=== PATIENT | male | born 1975 | race Caucasian/White ===

== ENCOUNTER 2025-07-14 00:02 | Emergency (ER) | payer OTHER, SELFPAY ==
[2025-07-14] VITALS (24 sets, daily range): BP systolic 129–146; BP diastolic 93–119; PULSE 85–86; RESP 16; TEMP 36.6; O2SAT 92–100
--- NOTE | ~2025-07-14 | XR_ITS ---
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 Lungs clear. No acute bony abnormality. IMPRESSION: 1. No acute cardiopulmonary findings. Reviewed, dictated and finalized at location R.
--- NOTE | 2025-07-14 00:24 | PC.NURSE ---
naz castro at bedside for assessment.
--- NOTE | 2025-07-14 00:31 | ECG_ITS ---
Test Date: 2025-07-14 00:45:29 Measurements Intervals [place] Rate: 83 P: 29 FL: 139 QRS: 7 QRSD: 86 T: 3 QT: 342 QTc: 402 Interpretive Statements SINUS RHYTHM DELAYED PRECORDIAL R/S TRANSITION LOW QRS VOLTAGE IN PRECORDIAL LEADS BORDERLINE ST-T WAVE ABNORMALITY- ANT/INF LEADS BASELINE ARTIFACT- I, III, AVR, AVL BORDERLINE ECG No previous ECG available for comparison Electronically Signed On 07-14-2025 05:07:49 CDT by Idris Christianson D.O.
--- NOTE | 2025-07-14 00:33 | ED.CHESTPAIN ---
HPI - Chest Pain General Chief Complaint: Anxiety Stated Complaint: anxious requesting resources Time Seen by Provider: 07/14/25 00:03 History of Present Illness HPI narrative: Patient is a 49-year-old male who presents to the ER with chest tightness, palpitations, hot/cold sweats, and projectile vomiting. He reports the same symptoms were present approximately 1 week ago and he went to [facility] in [place] for evaluation. Patient reports he was admitted for a ?fast heart rate. He also endorses shortness of breath. Patient reports he has had a lot of anxiety and stress in his life lately, so he does not know if this is anxiety related but he feels something is wrong with his heart. He endorses a history of alcoholism, CHF, cirrhosis, high blood pressure, and hyperlipidemia. Patient reports he has not drink alcohol in 6 months. He denies any recent fevers, acute back pain, abdominal pain or urinary symptoms. Related Data Home Medications ?Medication ?Instructions ?Recorded ?Confirmed ?Last Taken ?Type amiloride 5 mg tablet 5 mg PO DAILY 07/14/25 07/14/25 Unknown History aspirin 81 mg tablet,delayed mg 07/14/25 Unknown History release ergocalciferol (vitamin D2) 1,250 1,250 mcg PO WEEKLY 07/14/25 07/14/25 Unknown History mcg (50,000 unit) capsule (Vitamin D2) ezetimibe 10 mg tablet mg 07/14/25 Unknown History magnesium 250 mg tablet 250 mg PO DAILY 07/14/25 07/14/25 Unknown History pantoprazole 40 mg tablet,delayed 40 mg PO HS 07/14/25 07/14/25 Unknown History release (Protonix) Allergies Allergy/AdvReac Type Severity Reaction Status Date / Time cortisone Allergy Mild thrush Verified 07/14/25 00:04 Clgdddm-[id number]-WrP Reductase Allergy Mild thrush Verified 07/14/25 00:04 Inhibitor Review of Systems Review of Systems: All systems reviewed & are unremarkable except as noted in HPI and below PMFSH Social History Social History Substance use type: does not use Exam Narrative: GENERAL: Well appearing, well-nourished, non-toxic, in no acute distress. HEAD: Normocephalic, atraumatic. NECK: Supple. No adenopathy, no masses. RESPIRATORY: Airway patent, respirations nonlabored. Clear to auscultation bilaterally, no rales, rhonchi, wheezing. CARDIOVASCULAR: Regular rate and rhythm without murmurs, rubs, or gallops. Peripheral pulses 2+ and equal bilaterally. ABDOMINAL: Soft, nontender, nondistended, no hepatosplenomegaly. Normoactive BS. MUSCULOSKELETAL: Moves all extremities. Strength/ROM intact without gross deformities. SKIN: Warm, dry, normal color. No rashes. NEURO: A&O X3. Speech clear. Cranial nerves II-XII intact. No ataxic movements. PSYCHIATRIC: Appropriate mood and affect. Normal interaction. Anxious-appearing Course Vital Signs Vital signs: Vital Signs Temperature 36.6 C 07/14/25 00:01 Pulse Rate 85 07/14/25 00:01 Respiratory Rate 16 07/14/25 00:01 Blood Pressure 137/100 H 07/14/25 00:01 Pulse Oximetry 100 07/14/25 00:01 Oxygen Delivery Room Air 07/14/25 00:01 Temperature 36.6 C 07/14/25 00:01 Pulse Rate 85 07/14/25 00:01 Respiratory Rate 16 07/14/25 00:01 Blood Pressure 137/100 H 07/14/25 00:01 Pulse Oximetry 100 07/14/25 00:01 Oxygen Delivery Room Air 07/14/25 00:01 MDM - Chest Pain MDM Narrative Medical decision making narrative: Patient is a 49-year-old male who presents to the ER with chest tightness, palpitations, hot/cold sweats, and projectile vomiting. He reports the same symptoms were present approximately 1 week ago and he went to [facility] for evaluation. Patient reports he was admitted for a ?fast heart rate. He also endorses shortness of breath. Patient reports he has had a lot of anxiety and stress in his life lately, so he does not know if this is anxiety-related but he feels something is wrong with his heart. He endorses a history of alcoholism, CHF, cirrhosis, high blood pressure, and hyperlipidemia. Patient reports he has not drink alcohol in 6 months. He denies any recent fevers, acute back pain, abdominal pain or urinary symptoms. Pt reports he has an appointment scheduled with a rn outpatient surgery in five days. Labs Ordered: CBC, CMP, lipase, proBNP, UA, UDS, TSH, PTT, INR, D-dimer, troponin Imaging Ordered: Chest x-ray Medications Ordered: Xanax p.o. Results: Patient's CBC indicates a platelet count of 124 (he reports it was recently as low as 48). His coags and D-dimer were all within normal limits. Patient's CMP indicates a sodium of 135, carbon dioxide of 19, BUN of 21, total bilirubin of 1.8, and total protein of 8.8. His proBNP was negative. Patient's troponin level was negative. His lipase negative. Patient's TSH was within normal limits. Diagnosis: Atypical chest pain, shortness of breath, anxiety attack Patient Education/Shared MDM: Results of lab work and imaging shared with patient. At time of reexamination he endorses right flank pain that radiates to his abdomen. Patient was reassured that his urine indicates no abnormalities. Extensive discussion between patient and [employer] regarding pt's need for mental health follow-up. He declines mental health evaluation at this time. Patient is requesting resources for housing. He reports I guess I'll just need to get a ride down to [place] and hopefully they can treat me there. Patient strongly advised to maintain hydration status upon discharge and follow-up with his psychiatrist and PCP as soon as possible. He was also advised to follow-up with his rn outpatient surgery in five days, as planned. Pt was offered a prescription for hydroxyzine but reports ?that medicine does not work. He will be provided with counseling and housing resources. Strict return precautions provided. Patient verbalized understanding and is in agreement with plan. Vital signs stable at time of discharge. All questions answered. Differential Diagnosis Differential diagnosis: Likely atypical chest pain, st elevation myocardial infarction, costochondritis, chest pain and other (Anxiety) Lab Data Attestation: I reviewed the patient's lab results. 07/14/25 00:53 07/14/25 00:53 Labs: Lab Results 07/14/25 07/14/25 Range/Units 00:53 00:53 WBC 5.5 (4.5-10.0) K/mm3 RBC 4.82 (4.6-6.20) M/mm3 Hgb 15.7 (14.0-18.0) g/dL Hct 44.6 (42.0-52.0) % MCV 92.5 (80-100) fl MCH 32.6 (26-34) pg MCHC 35.2 (32-36) g/dl RDW 13.8 (11.5-14.5) % Plt Count 124 L (150-375) k/mm3 MPV 11.8 H (7.4-10.4) fl Immature Gran % (Auto) 0.4 (0-0.5) % Neut % (Auto) 65.5 (45.5-73.1) % Lymph % (Auto) 22.0 (18.3-44.2) % Stanley % (Auto) 10.5 H (2.6-8.5) % Eos % (Auto) 1.1 (0-4.4) % Baso % (Auto) 0.5 (0.2-1.2) % Lymph # (Auto) 1.21 (0.9-3.2) K/mm3 Stanley # (Auto) 0.6 (0.1-0.6) K/mm3 Eos # (Auto) 0.1 (0-0.3) K/mm3 Baso # (Auto) 0.0 (0.0-0.1) K/mm3 Abs Immat Gran (auto) 0.02 (0.00-0.031) K/mm3 Absolute Neuts (auto) 3.6 (1.3-6.7) K/mm3 Absolute Nucleated RBC 0.000 (0.0-0.012) K/mm3 Nucleated RBC % 0.0 (0.0-0.2) % % Immature Plt Fraction 8.7 (0.9-11.2) % PT 14.0 (11.1-14.7) Seconds INR 1.1 APTT 30.4 (22.3-36.8) Seconds D-Dimer 0.31 Cancelled (<0.48) ug/mL Sodium 135 L (137-145) mmol/L Potassium 4.3 (3.4-5.0) mmol/L Chloride 105 (98-107) mmol/L Carbon Dioxide 19 L (22-30) mmol/L Anion Gap 11 (4-12) mmol/L BUN 21 H (9-20) mg/dL Creatinine 0.92 (0.7-1.3) mg/dL Estim Creat Clear Calc 97 ml/min Estimated GFR > 60 (59 - ) Glucose 88 (65-110) mg/dL Calcium 9.4 (8.4-10.2) mg/dL Total Bilirubin 1.8 H (0.2-1.3) mg/dL AST 50 (17-59) U/L ALT 45 (6-50) U/L Alkaline Phosphatase 84 (38-126) U/L Troponin I < 0.012 (0.000-0.034) ng/mL NT-Pro-B Natriuret Pep < 20 (19.9-100) pg/mL Total Protein 8.8 H (6.3-8.2) g/dL Albumin 4.8 (3.5-5.1) g/dL Lipase 103 (23-300) U/L TSH (Reflex) 3.780 (0.465-4.68) uIU/mL Urine Color Yellow (Yellow) Urine Appearance Clear (Clear) Urine pH 5.5 (5.0-9.0) Ur Specific [place] 1.014 (1.001-1.035) Urine Protein Negative (Negative) mg/dL Urine Glucose (UA) Negative (Negative) mg/dL Urine Ketones Negative (Negative) mg/dL Ur Blood (Man) Negative (Negative) Urine Nitrate Negative (Negative) Urine Bilirubin Negative (Negative) Urine Urobilinogen 1.0 (<2.0) mg/dL Leukocyte Esterase Rfl Negative (Negative) LOTUS/UL Urine Opiates Screen Negative (Negative) Urine Methadone Screen Negative (Negative) Ur Barbiturates Screen Negative (Negative) Ur Phencyclidine Scrn Negative (Negative) Ur Amphetamine Screen Negative (Negative) U Benzodiazepines Scrn Negative (Negative) Urine Cocaine Screen Negative (Negative) U Cannabinoids Screen Negative (Negative) Imaging Data Attestation: I personally reviewed and interpreted this imaging study as follows: My impression: No acute abnormalities noted on patient's x-ray Discharge Plan Discharge Clinical Impression: Acute anxiety, Atypical chest pain, Shortness of breath Patient Disposition: Home Condition: Stable Instructions: Antibiotic Form, Noncardiac Chest Pain (ED), Anxiety (ED) Additional Instructions: Please return to the ER with any worsening symptoms. Follow-up with your primary care provider and psychiatrist as soon as possible. Keep your cardiology appointment as planned. Take all medications as prescribed, including regularly scheduled medications. Patient Language: Guamanian Prescriptions: No Action aspirin 81 mg tablet,delayed release (DR/EC) ezetimibe 10 mg tablet amiloride 5 mg tablet 5 mg PO DAILY ergocalciferol (vitamin D2) [Vitamin D2] 1,250 mcg (50,000 unit) capsule 1,250 mcg PO WEEKLY magnesium 250 mg tablet 250 mg PO DAILY pantoprazole [Protonix] 40 mg tablet,delayed release (DR/EC) 40 mg PO HS Follow-up/Referrals: Rip Cabrera MD [Non-Staff, Medical] Time of Disposition: 02:51
--- OUTSIDE RECORDS SUMMARY | 2025-07-14 00:40 | XMS_ITS | Clinical Summary ---
Author Organization [facility] Address [address] [place] [address] Care Team Providers Care Marble Worker Name Role Phone None, Provider MD Primary Care Provider Unavaila ble Allergies Active Allergy Reactions Criticality Noted Date Comments Statins Unknown 08/08/2021 Medications ondansetron 4 MG disintegrating tablet Take 1 tablet (4 mg total) by mouth every 8 (eight) hours as needed for Nausea. 20 tablet 1 Active guaiFENesin ER 600 MG 12 hr tablet Take 2 tablets (1,200 mg total) by mouth 2 (two) times daily. 28 tablet 1 Active Social History Tobacco Use Types Packs/Day Years Used Date Smoking Tobacco: Never Smokeless Tobacco: Never Sex and Gender Information Value Date Recorded Sex Assigned at Not on file Legal Sex Male 6:24 PM CDT Gender Identity Not on file Sexual Orientation Not on file Last Filed Vital Signs Vital Sign Reading Time Taken Comments Blood Pressure 172/102 08/08/2021 5:35 PM BASS SINGER Pulse 94 08/08/2021 5:35 PM BASS SINGER Temperature 36.7 C (98.1 F) 08/08/2021 5:35 PM BASS SINGER Respiratory Rate 18 08/08/2021 5:35 PM BASS SINGER Oxygen Saturation 98% 08/08/2021 5:35 PM BASS SINGER Inhaled Oxygen Concentration - - Weight 105 kg (231 lb 6.1 oz) 04/08/2016 9:56 AM CDT Height 167.6 cm (5' 6) 04/08/2016 9:56 AM CDT Body Mass Index 37.35 04/08/2016 9:56 AM CDT Plan of Treatment Health Maintenance Due Date Last Done Comments Colorectal Cancer Screening Colonoscopy (10 Years) 1974 Annual Physical 1977 Hepatitis C 1992 DTaP, Tdap and Td Vaccines ( 1 - Tdap) 1993 Hepatitis B Vaccines (1 of 3 - 19+ 3-dose series) 1993 Pneumococcal Vaccine: 50+ Ye ars (1 of 1 - PCV) 2024 Zoster Vaccines (1 of 2) 2024 COVID-19 Vaccine (2 - 2024-2 6 season) 2025 01/01/2021 Influenza Adult (#1) 2025 Hepatitis A Vaccines Aged Out No long er eligible based on patient's age to complete this topic Meningococcal B Vaccine Aged Out No l onger eligible based on patient's age to complete this topic Meningococcal Vaccine Aged Out No andrea emily eligible based on patient's age to complete this topic RSV Immunizations Under 20 Months Aged Out No longer eligible based on patient's age to complete this topic Insurance Care Teams Marble Worker Relationship Specialty Start Date End Date None, Provider, PCP - General 08/08/21
--- OUTSIDE RECORDS SUMMARY | 2025-07-14 00:41 | XMS_ITS | Clinical Summary ---
Author Organization [facility] Address [address] [place] [address] Care Team Providers Care Cargo Checker Name Role Phone No, Physician Primary Care Provider [phone] Allergies Active Allergy Reactions Criticality Noted Date Comments Cortisone Other (See comments) Low 11/24/2023 thrush Nsaids (Non-Steroidal Anti-Inflammatory Drug) Other (See comments) Low 10/01/2022 Contraindicated with esophageal varices. [id number] Reductase Inhibitors Unknown 08/08/2021 Medications cyanocobalamin (Vitamin B-12) 500 mcg tabletIndicatio ns:Prevention of Vitamin B12 Deficiency Take 1 tablet (500 mcg total) by mouth daily Active multivitamin with folic acid 400 mcg tablet Take 1 tablet by mouth daily 30 tablet 4 Active thiamine (VITAMIN B1) 100 mg tabletIndicatio ns:Thiamine Deficiency Take 1 tablet (100 mg total) by mouth daily 30 tablet 4 Active furosemide (LASIX) 20 mg tablet TAKE 1 TABLET BY MOUTH EVERY DAY 90 tablet [address] (PROTONIX) 40 mg EC tablet Take 1 tablet (40 mg total) by mouth daily 30 tablet 4 Active carvediloL (COREG) 6.25 mg tablet Take 1 tablet (6.25 mg total) by mouth 2 (two) times a day with meals Active acetaminophen (TYLENOL) 500 mg tablet Take 1 tablet (500 mg total) by mouth 4 (four) times a day as needed for pain Active AMILoride (MIDAMOR) 5 mg tablet Take 2 tablets (10 mg total) by mouth daily Active cholecalciferol (VITAMIN D-3) 2000 unit capsule Take 1 capsule (2,000 Units total) by mouth daily Active FLUoxetine (PROzac) 20 mg capsule Take 1 capsule (20 mg total) by mouth daily Active magnesium oxide (MAG-OX) 400 mg (241.3 mg elemental magnesium) tabletIndicatio ns:hypomagnesem ia Take 1 tablet (400 mg total) by mouth daily Active potassium chloride ER 20 mEq CR tablet Take 2 tablets (40 mEq total) by mouth daily Active aspirin 81 mg enteric coated tabletIndicatio ns:myocardial infarction prevention Take 1 tablet (81 mg total) by mouth daily 30 tablet 5 08/08/20 Active ezetimibe (ZETIA) 10 mg tablet Take 1 tablet (10 mg total) by mouth daily 30 tablet 5 08/08/20 Active magnesium glycinate 100 mg tablet Take 300 mg by mouth daily 07/06/20 Discontinu ed(Alterna te therapy) multivit with min-folic acid 200 mcg tablet,chewable Take by mouth 07/06/20 Discontinu ed(Alterna te therapy) ascorbic acid (VITAMIN C) 500 mg tablet,chewable Take 1 tablet/chew tab (500 mg total) by mouth daily 07/06/20 Discontinu ed(Therapy completed) vitamin D3-folic acid 125 mcg (5,000 unit)-1 mg tablet Take by mouth daily 07/06/20 Discontinu ed(Alterna te therapy) ketorolac (ACULAR) 0.5 % ophthalmic solution 3 07/06/20 Discontinu ed(Therapy completed) folic acid (FOLVITE) 1 mg tablet TAKE 1 TABLET BY MOUTH EVERY DAY 90 tablet 3 07/06/20 Discontinu ed(Therapy completed) carvediloL (COREG) 6.25 mg tablet Take 1 tablet (6.25 mg total) by mouth 2 (two) times a day with meals Annual due after 11/29/23 180 tablet 4 07/06/20 Discontinu ed(Alterna te therapy) spironolactone (ALDACTONE) 50 mg tablet Take 1 tablet (50 mg total) by mouth daily 90 tablet 3 4 07/06/20 Discontinu ed(Therapy completed) ibuprofen (ADVIL,MOTRIN) 800 mg tablet Take 1 tablet (800 mg total) by mouth 3 (three) times a day as needed for pain 07/08/20 Discontinu ed(Stop Taking at Discharge) Active Problems Problem Noted Date Diagnosed Date Atypical chest pain 07/06/2025 Precordial pain 07/06/2025 Alcohol withdrawal syndrome without complication 11/24/2023 Situational mixed anxiety and depressive disorde r 03/12/2023 Assessment & Plan (03/12/2023 10:16 AM CDT): New diagnosis-referred to psychiatry and psychology, information provided on local providers, however recommended that he contact insurance for a list of providers covered under his plan. If suicidal ideation and/or thoughts of harming self or others, advised to go to ER and/or call [phone]. Bilateral foot pain 03/12/2023 Assessment & Plan (03/12/2023 10:14 AM CDT): Chronic, stable-referred to podiatry for further evaluation and management. Bilateral bunions 03/12/2023 Assessment & Plan (03/12/2023 10:14 AM CDT): Chronic, stable-referred to podiatry for further evaluation and management. Preoperative clearance 03/12/2023 Assessment & Plan (03/12/2023 10:15 AM CDT): Cleared for cataract surgery. Neuroendocrine tumor 12/09/2022 Assessment & Plan (12/09/2022 11:22 AM CDT): EGD August [address] Bah with large esophageal varices and portal hypertensive gastropathy as well as a few small mucosal nodules in the gastric body, pathology with well-differentiated low-grade neuroendocrine lesion arising within a background of complete intestinal metaplasia. -schedule EGD -The risks (risks of bleeding, infection, perforation requiring surgery, missed polyps/cancer, dental injury, aspiration pneumonia, anesthesia complications such as drug reaction and cardiopulmonary complications including rare chance of ), benefits, and alternatives of the planned procedure were explained to the patient who understands and consents to having procedure done. -refer to Oncology for further evaluation Gastric intestinal metaplasia 12/09/2022 Assessment & Plan (12/09/2022 11:23 AM CDT): Noted on pathology from EGD August 2022. Screening for colon cancer 12/09/2022 Assessment & Plan (12/09/2022 11:36 AM CDT): No prior colonoscopy. No family history of colon cancer. -discuss colonoscopy for screening as well as alternatives, patient deferred at this time -advised patient he would likely need colonoscopy once evaluated by liver transplant, he states he would consider it at that time Physical exam, annual 11/29/2022 Assessment & Plan (11/29/2022 3:02 PM MANAGER COUNCIL): Reviewed past and current medical history, surgical history, social history, family history, current medications, and allergies. A ROS and PE were performed. Medication and a PSA level were ordered. Discussed screening colonoscopy, PSA screening, and recommended immunizations. Patient will follow-up in 12 weeks for further evaluation and management or sooner if needed. Liver failure without hepatic coma, unspecified chronicity 10/27/2022 Assessment & Plan (11/29/2022 2:54 PM MANAGER COUNCIL): Chronicity unknown, with stable ammonia levels-encouraged to keep appointment with route aide scheduled for 12/09/2022. Assessment & Plan (10/31/2022 4:28 PM MANAGER COUNCIL): Chronic, with acute symptoms, improved upon discharge from hospital, still jaundiced with abdominal bloating-no changes have been made in medication. Advised to continue abstinence from alcohol. Encouraged to attempt to call Dr. Jenkins's office to see if earlier availability and/or [facility] Department of Hepatology. Recommended follow-up in office in 4 weeks for annual exam, sooner if needed. Instructed to go to ER if worsening jaundice, nausea, vomiting, abdominal pain, blood in vomitu, blood in stools or with wiping, black tarry stools, fever, chills, sweats, and/or weakness. Fatigue 10/25/2022 Assessment & Plan (03/12/2023 10:14 AM CDT): Chronic, stable-referred to sleep medicine for further evaluation and management. Assessment & Plan (11/29/2022 2:59 PM MANAGER COUNCIL): Chronic, worsening, with recent normal hemoglobin and hematocrit, elevated ferritin level, and normal TSH level-encouraged to break activities into smaller tasks and nap when feasible. Assessment & Plan (10/25/2022 10:05 PM MANAGER COUNCIL): Jaundice Recent diagnosis of esophageal varices and cirrhosis Symptoms more likely related to cirrhosis rather than acute viral illness, rapid covid and flu negative Notified pt's PCP Emely Gómez of his current symptoms He will go to ER if worsening symptoms today or tomorrow, and has appointment with Emely on Friday Prostate cancer screening 10/05/2022 Assessment & Plan (11/29/2022 2:53 PM MANAGER COUNCIL): Ordered PSA level. Assessment & Plan (10/05/2022 8:19 AM MANAGER COUNCIL): Ordered PSA level. Encounter for vitamin deficiency screening 10/05 Assessment & Plan (10/05/2022 8:27 AM MANAGER COUNCIL): Ordered vitamin-D level and magnesium level. Continued on vitamin B1, B12, folic acid, multivitamin, and magnesium. Abdominal distension 09/05/2022 Assessment & Plan (11/29/2022 3:01 PM MANAGER COUNCIL): Chronicity and stability unknown, status post 2 paracentesis-encouraged to keep appointment with route aide scheduled for 12/09/2022. Assessment & Plan (10/05/2022 8:33 AM MANAGER COUNCIL): Acute, resolved at time of visit, status post paracentesis with 5 L of ascitic fluid removed-encouraged continued abstinence from alcohol and fluid restriction of 1800 mL per day recommended on discharge. Transaminitis 09/05/2022 Assessment & Plan (11/29/2022 2:52 PM MANAGER COUNCIL): Chronicity and stability unknown, resolved at last check-referred to route aide, has upcoming appointment on 12/09/2022. Assessment & Plan (10/05/2022 8:19 AM MANAGER COUNCIL): Chronicity and stability unknown-ordered CMP. Hyponatremia 09/05/2022 Assessment & Plan (11/29/2022 2:54 PM MANAGER COUNCIL): Chronicity unknown, stable at last check-will continue to monitor periodically. Assessment & Plan (10/05/2022 8:22 AM MANAGER COUNCIL): Chronicity unknown, stable during hospitalization, still low upon discharge- ordered CMP. Hypokalemia 09/05/2022 Assessment & Plan (11/29/2022 2:55 PM MANAGER COUNCIL): Chronicity and stability unknown, normal at last check-will continue to monitor periodically. Assessment & Plan (10/05/2022 8:23 AM MANAGER COUNCIL): Chronicity unknown, improved during hospitalization/controlled upon discharge- ordered CMP. Hypomagnesemia 09/05/2022 Assessment & Plan (11/29/2022 2:55 PM MANAGER COUNCIL): Chronicity and stability unknown, normal at last check-ordered magnesium level. Assessment & Plan (10/05/2022 8:23 AM MANAGER COUNCIL): Chronicity unknown, improved during hospitalization/controlled upon discharge, now on supplement-encouraged to continue magnesium supplement daily. Ordered magnesium level. Class 1 obesity due to exces s calories with serious comorbidity and body mass index (BMI) of 30.0 to 30.9 in adult 09/05/2022 Assessment & Plan (11/29/2022 3:00 PM MANAGER COUNCIL): Chronicity and stability unknown-encouraged to make healthy choices, consuming a low-fat, low-cholesterol diet. Assessment & Plan (10/05/2022 8:21 AM MANAGER COUNCIL): Chronicity unknown, improved since hospital discharge, BMI previously 36.9, now 30.36-advised to cntinue fluid restriction of 1800 mL per day recommended on discharge and to follow a low-fat, low-cholesterol, low-sodium diet. 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 Patient was admitted to the hospital for abdominal distention status post paracentesis with 5 L removed in August of 2022. EGD [address] Bah as below.Labs from August 2022 with normal AFP, normal alpha 1 antitrypsin level, normal ceruloplasmin, elevated transferrin saturation of 58, ferritin of 1292, hepatitis panel nonreactive, positive NACHO, negative AMA, positive ASMA. Labs October 2022 with an IgG level of 2,477. Patient was readmitted to the hospital October 2022 for jaundice. Denies any alcohol use since August 2022. MELD score 25 based on labs from October 27 2022. -continue to avoid all alcohol -continue Lasix 40 mg p.o. daily and Aldactone 100 mg p.o. daily -refer to liver transplant Clinic Assessment & Plan (11/29/2022 3:00 PM MANAGER COUNCIL): Chronicity unknown, with stable ammonia levels-encouraged to keep appointment with route aide scheduled for 12/09/2022. Assessment & Plan (10/05/2022 8:30 AM MANAGER COUNCIL): New diagnosis, chronicity and stability unknown-advised to keep appointment with GI, Dr. Jenkins and informed will need a repeat MRI of liver in 3 months. Encouraged continued abstinence from alcohol and fluid restriction of 1800 mL per day recommended on discharge from hospital. Thrombocytopenia Assessment & Plan (11/29/2022 2:53 PM MANAGER COUNCIL): Chronicity unknown, stable at last check-will continue to monitor periodically. Assessment & Plan (10/05/2022 8:19 AM MANAGER COUNCIL): Chronicity and stability unknown-ordered CBC. 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 Bah with large esophageal varices and portal hypertensive gastropathy. -continue Coreg -schedule EGD Assessment & Plan (11/29/2022 2:59 PM MANAGER COUNCIL): Chronicity and stability unknown-continued on carvedilol. Continued on pantoprazole, refills sent to pharmacy per patient request. Encouraged to keep appointment with route aide scheduled for 12/09/2022. Assessment & Plan (10/05/2022 8:28 AM MANAGER COUNCIL): Chronicity unknown, new finding during hospitalization-continued on carvedilol. Encouraged avoidance of NSAIDs and abstinence from alcohol. Advised to keep consultation appointment with Dr. Jenkins, route aide. Hyperbilirubinemia Assessment & Plan (11/29/2022 2:56 PM MANAGER COUNCIL): Chronicity unknown, worsened-encouraged to keep appointment with route aide on 12/09/2022. Assessment & Plan (10/05/2022 8:24 AM MANAGER COUNCIL): Chronicity and stability unknown, elevated upon discharge-ordered CMP. Chronic alcohol use Assessment & Plan (11/29/2022 3:00 PM MANAGER COUNCIL): Encouraged continued abstinence. Assessment & Plan (10/31/2022 4:29 PM MANAGER COUNCIL): Encouraged continued abstinence. Assessment & Plan (10/05/2022 8:31 AM MANAGER COUNCIL): Chronic, currently reports abstinence-encouraged continued abstinence from alcohol use. Mixed hyperlipidemia Assessment & Plan (11/29/2022 2:54 PM MANAGER COUNCIL): Chronicity and stability unknown, normal at last check, not on medication- encouraged low-fat, low-cholesterol diet, high in fiber. Assessment & Plan (10/05/2022 8:21 AM MANAGER COUNCIL): Chronicity and stability unknown-ordered lipid panel. Resolved Problems Problem Noted Date Diagnosed Date Resolved Date Encounter to establish care 10/05/2022 10/31/2022 Assessment & Plan (10/05/2022 8:26 AM MANAGER COUNCIL): Reviewed past and current medical history, surgical history, social history, family history, current medications, and allergies. A ROS and PE were performed. Labs were ordered and encouraged to keep consultation visit with GI, Dr. Jenkins. Ordered PSA screening. Patient will follow-up in 4 weeks for annual exam or sooner if needed. Abnormal CT of the abdomen 09/05/2022 0 11/29/2022 Assessment & Plan (10/05/2022 8:32 AM MANAGER COUNCIL): New findings on CT of abdomen and MRI suggestive of cirrhosis of the liver- repeat MRI of liver recommended in 3 months. Encounters Date Type Department Care Team Description 07/06/2025 2:14 AM CDT - 07/08/2025 12:55 PM CDT Hospital Encounter [address] [address] Derick Rutledge MD Osikoya, Olufemi Edward, MD Al Furgani, Mahmud Mustafa, MD Precordial pain (Primary Dx) Discharge Disposition: Discharge to home or self care from Last 3 Months Immunizations Immunization Administration Dates Next Due Influenza, Unspecified 06/22/2022(Deferr ed: Patient Refused),06/22/2022(Deferred: Patient Refused) Surgical History Surgery Date Site/Laterality Comments UPPER GASTROINTESTINAL ENDOSCOPY Medical History Medical History Date Comments Alcohol abuse Hypertension Abnormal CT of the abdomen 09/05/2022 Family History Medical History Relation Name Comments Alcohol abuse Father Kj Haas Hepatitis Father Kj Haas Cancer Maternal Grandmother Octavia Lee No Known Problems Mother Cirrhosis Mother's Brother Cirrhosis Mother's Sister Esophageal varices Mother's Sister Relation Name Status Comments Father Kj Haas Maternal Grandmother Octavia Lee Mother Alive Mother's Brother Alive Mother's Sister Alive Social History Tobacco Use Types Packs/Day Years Used Date Smoking Tobacco: Never Smokeless Tobacco: Never Tobacco Cessation:Counseling Given: Not Answered Alcohol Use Standard Drinks/Week Comments Not Currently 0 (1 standard drink = 0.6 oz pur e alcohol) quit in 2021 Social Connection and Isolation Panel Answer Date Recorded In a typical week, how many times do you talk on the phone with family, friends, or neighbors? More than three times a week 11/26/2023 How often do you get togethe r with friends or relatives? More than three times a week 11/26/2023 How often do you attend chur ch or jain services? Never 11/26/2023 Do you belong to any clubs o r organizations such as restorationist groups, unions, fraternal or athletic groups, or school groups? No 11/26/2023 How often do you attend meet ings of the clubs or organizations you belong to? Never 11/26/2023 Are you , , di vorced, , never , or living with a partner? 11/26/2023 AUDIT-C Answer Date Recorded Q1: How often do you have a drink containing alc ohol? Never 04/18/2023 Average Number of Drinks Not on file 023 Q3: How often do you have si x or more drinks on one occasion? Never 04/18/2023 Overall Financial Resource Strain (CARDIA) Answe r Date Recorded How hard is it for you to pa y for the very basics like food, housing, medical care, and heating? Not very hard 11/26/2023 PHQ-2 Answer Date Recorded PHQ-2 Total Score 0 07/06/2025 PRAPARE - Transportation Answer Date Re corded In the past 12 months, has l ack of transportation kept you from medical appointments or from getting medications? No 02/2024 In the past 12 months, has l ack of transportation kept you from meetings, work, or from getting things needed for daily living? No 11/26/2023 Housing Stability Vital Sign Answer Gustabo e Recorded In the last 12 months, was t here a time when you were not able to pay the mortgage or rent on time? No 11/26/2023 In the last 12 months, how many places have you lived? 1 11/26/2023 In the last 12 months, was t here a time when you did not have a steady place to sleep or slept in a long-term (including now)? No 11/26/2023 PHQ-9 Answer Date Recorded PHQ-9 Total Score 8 07/06/2025 Social Connection and Isolation Panel Answer Date Recorded In a typical week, how many times do you talk on the phone with family, friends, or neighbors? Three times a week 07/06/2025 How often do you get togethe r with friends or relatives? Three times a week 07/06/2025 How often do you attend chur ch or jain services? Never 07/06/2025 Do you belong to any clubs o r organizations such as restorationist groups, unions, fraternal or athletic groups, or school groups? No 07/06/2025 How often do you attend meet ings of the clubs or organizations you belong to? Never 07/06/2025 Are you , , di vorced, , never , or living with a partner? 07/06/2025 Overall Financial Resource Strain (CARDIA) Answe r Date Recorded How hard is it for you to pa y for the very basics like food, housing, medical care, and heating? Somewhat hard 07/06/2025 Hunger Vital Sign Answer Date Recorded Within the past 12 months, y ou worried that your food would run out before you got the money to buy more. Never true 07/06/20 25 Within the past 12 months, t he food you bought just didn't last and you didn't have money to get more. Never true 07/06/2025 PRAPARE - Transportation Answer Date Re corded In the past 12 months, has l ack of transportation kept you from medical appointments or from getting medications? No 06/22 In the past 12 months, has l ack of transportation kept you from meetings, work, or from getting things needed for daily living? No 07/06/2025 Housing Stability Vital Sign Answer Gustabo e Recorded In the last 12 months, was t here a time when you were not able to pay the mortgage or rent on time? No 07/06/2025 In the past 12 months, how m any times have you moved where you were living? 1 07/06/2025 At any time in the past 12 m [facility], were you homeless or living in a long-term (including now)? No 07/06/2025 [facility] Utilities Answer Date Recorded In the past 12 months has th logtrust, gas, oil, or water company threatened to shut off services in your home? No 07/06/2025 Personal Safety Answer Date Recorded Have you ever been in or are you currently in a harmful physical or emotional relationship or is someone making you feel afraid or unsafe? Denies 07/06/2025 Sex and Gender Information Value Date Recorded Sex Assigned at Not on file Legal Sex Male 12:56 AM MANAGER COUNCIL Gender Identity Male 09/04/2022 7:29 PM MANAGER COUNCIL Sexual Orientation Straight 09/04/2022 7: 29 PM MANAGER COUNCIL Occupation Industry Job Start Date Job End Date Unemployed Not on file Not on file Not on file Obstetrics History Last Filed Vital Signs Vital Sign Reading Time Taken Comments Blood Pressure 120/83 07/08/2025 12:08 PM CDT Pulse 72 07/08/2025 12:08 PM CDT Temperature 36.6 C (97.9 F) 07/08/2025 12:08 PM CDT Respiratory Rate 17 07/08/2025 12:0 8 PM CDT Oxygen Saturation 94% 07/08/2025 12: 08 PM CDT Inhaled Oxygen Concentration - - Weight 99.3 kg (218 lb 14.4 oz) 07/06/2025 6:17 AM CDT Height 167.6 cm (5' 6) 12/02/2023 6:44 PM CDT Body Mass Index 35.33 12/02/2023 6:44 PM CDT Plan of Treatment Health Maintenance Due Date Last Done Comments Colon Cancer Screening-Colonoscopy 1974 DTaP/Tdap/Td Vaccine (1 - Tdap) 1985 Hepatitis B Screening 1992 Pneumococcal vaccine <65 (1 of 2 - PCV) 1993 Regular Well Visit/Exam 18-64 11/29/2023 11/28/2022 Prostate Cancer Screening-PSA 10/01/2024 10/01/2022 Zoster Vaccine (1 of 2) 2024 Influenza Vaccine (#1) 2025 Depression Screening 07/06/2026 07/06/2025, 07/06/2025, 03/12/2023, Additional history exists Covid-19 Vaccine Discontinued 01/01/2021 Hepatitis C Screening Completed 10/28/2022, 022 Procedures Procedure Name Priority Date/Time Associated Diagnosis Comments INFECTION PREVENTION KYLAH AURIS PCR, SURVEILLANCE Routine 07/08/2025 11:[address] ABDOMEN PELVIS WO CONTRAST ED Urgent/IP Urgent 07/07/2025 3:24 PM CDT STRESS TEST FOR DUAL READ IP Routine 07/07/2025 11:44 AM CDT NM MPI SPECT (REST AND/OR STRESS) MULTIPLE STUDIES IP Routine 07/07/2025 11:44 AM CDT ECG 12-LEAD Routine 07/07/2025 9:08 AM CDT EGFR Routine 07/07/2025 4:45 AM CDT DIFFERENTIAL AUTO Routine 07/07/2025 4:4 5 AM CDT THYROID FUNCTION CASCADE Routine 07/07/2025 4:45 AM CDT PHOSPHORUS Routine 07/07/2025 4:45 AM CDT MAGNESIUM Routine 07/07/2025 4:45 AM CDT COMPREHENSIVE METABOLIC PANEL Routine 07/07/2025 4:45 AM CDT CBC WITH AUTO DIFFERENTIAL Routine 07/07/2025 4:45 AM CDT TRANSTHORACIC ECHO (TTE) COMPLETE W DOPPLER/CF WO CONTRAST Routine 07/06/2025 1:42 PM CDT LIPID PANEL Routine 07/06/2025 8:17 AM CDT TROPONIN T HIGH-SENSITIVITY 6-HOUR Timed 07/06/2025 8:[address] HEAD WO CONTRAST IP Routine 07/06/2025 7 :43 AM CDT DRUG SCREEN, URINE L AND D WITH REFLEX CONFIRMATION Routine 07/06/2025 5:52 AM CDT TROPONIN T HIGH-SENSITIVITY 4-HR Timed 07/06/2025 5:52 AM CDT ETHANOL Timed 07/06/2025 3:58 AM CDT TROPONIN T HIGH-SENSITIVITY 2-HOUR Timed 07/06/2025 3:58 AM CDT POTASSIUM LEVEL STAT 07/06/2025 2:05 AM CDT AST STAT 07/06/2025 2:05 AM CDT ALT STAT 07/06/2025 2:05 AM CDT EGFR STAT 07/06/2025 2:05 AM CDT COMPREHENSIVE METABOLIC PANEL STAT 07/06/2025 2:05 AM CDT TROPONIN T HIGH-SENSITIVITY SERIES (BASELINE, 2HR, 4HR, 6HR) STAT 07/06/2025 2:05 AM CDT XR CHEST 1 VIEW ED 07/06/2025 12:19 AM CDT ECG 12-LEAD STAT 07/06/2025 12:12 AM CDT HEMOGLOBIN A1C STAT 07/06/2025 12:12 AM CDT EGFR STAT 07/06/2025 12:12 AM CDT DIFFERENTIAL AUTO STAT 07/06/2025 12: 12 AM CDT COMPREHENSIVE METABOLIC PANEL STAT 07/06/2025 12:12 AM CDT CBC WITH AUTO DIFFERENTIAL STAT 07/06/2025 12:12 AM CDT HEPATITIS PANEL, ACUTE Routine 10/28/2022 6:09 AM MANAGER COUNCIL PSA SCREEN Routine 10/01/2022 10:39 AM MANAGER COUNCIL Prostate cancer screening from Last 3 Months or Most Recently Relevant to Health Maintenance Results * Infection Prevention Kylah auris PCR, surveillance Axilla/Groin (07/08/2025 11:49 AM CDT) Kylah auris DNA Not Detected Not Detected [facility]ED WITH [facility] Comment: Interpretive Data Testing performed by [facility] Molecular Infectious Disease Laboratory using the Roxy maynor [address] Kylah auris assay. This assay detects DNA from Kylah auris using Real-Time PCR. This assay is laboratory developed and is not cleared by the [place] Food and Drug Administration. The performance characteristics have been verified by the [facility] Molecular Infectious Disease Laboratory. Testing performed by: [facility], [address], [place]., [address] Axilla/Groin 07/08/2025 11:4 9 AM CDT 07/08/2025 4:21 PM CDT Iain Byers MD LAB MICROBIOLOGY - GENERAL O RDERABLES Final Result [facility] [id number] [facility] Department [place] [address] MERGED WITH [facility] * CT Abdomen Pelvis WO Contrast (07/07/2025 3:24 PM CDT) Anatomical Region Laterality Modality Body N/A Computed Tomogra phy 07/07/2025 4:54 PM CDT Narrative 07/07/2025 4:57 PM CDT EXAM DESCRIPTION: CT ABDOMEN PELVIS WO CONTRAST REASON FOR STUDY: Abdominal pain, acute, nonlocalized Pt c/o abdominal pain x 2 days TECHNIQUE: CT scan of the abdomen and pelvis performed without intravenous and without oral contrast using helical scanning technique. Reconstructed coronal and sagittal MPR images reviewed. All images stored on PACS. Automated exposure control was used as a dose optimization technique for this examination. COMPARISON: 07/01/2024 FINDINGS: The sensitivity for detection of visceral lesions is diminished without the use of intravenous contrast. LOWER CHEST: No significant pulmonary abnormalities. No effusion. LIVER: Shrunken and nodular as seen cirrhosis. The liver demonstrates a diffuse decrease in density characteristic of fatty infiltration. GALLBLADDER: Stones. No wall thickening or pericholecystic fluid. BILE DUCTS: No intrahepatic or extrahepatic ductal dilatation. SPLEEN: Enlarged at 15 cm. PANCREAS: No identified cystic or solid masses. No significant calcifications. No adjacent inflammation or peripancreatic fluid collections. Pancreatic duct not dilated. ADRENALS: Normal. KIDNEYS/URINARY TRACT: No identified significant cystic or solid masses. No stones. No hydronephrosis or hydroureter. Urinary bladder is unremarkable. GI: No dilated bowel loops. No obvious wall thickening. Normal appendix. Scattered diverticular disease without diverticulitis. PERITONEUM: No ascites or free air. RETROPERITONEUM: No mass or adenopathy. REPRODUCTIVE: No significant abnormality. VASCULATURE: No abdominal aortic aneurysm. MUSCULOSKELETAL: No significant abnormality. OTHER: No other abnormality. IMPRESSION: 1. The liver is small and nodular as seen cirrhosis. The liver demonstrates a diffuse decrease in density characteristic of fatty infiltration. 2. Cholelithiasis. 3. Splenomegaly. 4. Diverticulosis. No evidence of diverticulitis. THIS IS AN ELECTRONICALLY VERIFIED FINAL REPORT 07/07/2025 4:57 PM - Electronically signed by Yusef Underwood M.D. KT T: Report ID: [id number] Reading Location: [id number] Procedure Note Yusef Underwood MD - 07/07/2025 EXAM DESCRIPTION: CT ABDOMEN PELVIS WO CONTRAST REASON FOR STUDY: Abdominal pain, acute, nonlocalized Pt c/o abdominal pain x 2 days TECHNIQUE: CT scan of the abdomen and pelvis performed without intravenousand without oral contrast using helical scanning technique. Reconstructed coronal and sagittal MPR images reviewed. All images stored on PACS.Automated exposure control was used as a dose optimization technique for this examination. COMPARISON: 07/01/2024 FINDINGS: The sensitivity for detection of visceral lesions is diminished without the use of intravenous contrast. LOWER CHEST: No significant pulmonary abnormalities. No effusion. LIVER: Shrunken and nodular as seen cirrhosis. The liver demonstrates a diffuse decrease in density characteristic of fatty infiltration. GALLBLADDER: Stones. No wall thickening or pericholecystic fluid. BILE DUCTS: No intrahepatic or extrahepatic ductal dilatation. SPLEEN: Enlarged at 15 cm. PANCREAS: No identified cystic or solid masses. No significant calcifications. No adjacent inflammation or peripancreatic fluidcollections. Pancreatic duct not dilated. ADRENALS: Normal. KIDNEYS/URINARY TRACT: No identified significant cystic or solid masses.No stones. No hydronephrosis or hydroureter. Urinary bladder isunremarkable. GI: No dilated bowel loops. No obvious wall thickening. Normal appendix. Scattered diverticular disease without diverticulitis. PERITONEUM: No ascites or free air. RETROPERITONEUM: No mass or adenopathy. REPRODUCTIVE: No significant abnormality. VASCULATURE: No abdominal aortic aneurysm. MUSCULOSKELETAL: No significant abnormality. OTHER: No other abnormality. IMPRESSION: 1. The liver is small and nodular as seen cirrhosis. The liverdemonstrates a diffuse decrease in density characteristic of fatty infiltration. 2. Cholelithiasis. 3. Splenomegaly. 4. Diverticulosis. No evidence of diverticulitis. THIS IS AN ELECTRONICALLY VERIFIED FINAL REPORT 07/07/2025 4:57 PM - Electronically signed by Yusef Underwood M.D. KT T: Report ID: [id number] Reading Location: [place] [address] Suze Richmond MD IML[address]a CT PROCEDURES F inal Result * NM MPI SPECT (Rest and/or Stress) Multiple Studies (07/07/2025 11:44 AM CDT) Anatomical Region Laterality Modality Body N/A Nuclear Medicine 07/07/2025 11:5 7 AM CDT Narrative 07/07/2025 11:59 AM CDT EXAM DESCRIPTION: NM MPI SPECT (REST AND/OR STRESS) MULTIPLE STUDIES REASON FOR STUDY: Chest pain. RADIOPHARMACEUTICAL: Rest: 11 mCi Tc-99m tetrofosmin Pharmacologic Stress: 33 mCi Tc-99m tetrofosmin Injection site: Left hand IV site TECHNIQUE: Standard myocardial perfusion SPECT images were obtained after resting tracer injection. Subsequently, an intravenous infusion of 0.4 mg Lexiscan was performed. Standard myocardial perfusion images were obtained after tracer injection at the peak effect of the drug. COMPARISON: None FINDINGS: Image quality is adequate at rest and adequate at stress. There are no perfusion abnormalities. The left ventricular cavity size is normal . Gated tomographic images demonstrate normal wall motion and wall thickening with a left ventricular ejection fraction of 63 % poststress (normal >45%). IMPRESSION: 1. Normal myocardial perfusion study. No scintigraphic evidence of myocardial ischemia. 2. Normal left ventricular ejection fraction of 63 % poststress. 3. Normal wall motion. THIS IS AN ELECTRONICALLY VERIFIED FINAL REPORT 07/07/2025 11:59 AM - Electronically signed by Jeancarlos Clay M.D. LB T: Report ID: [id number] Reading Location: [id number] Procedure Note Jeancarlos Clay MD - 07/07/2025 EXAM DESCRIPTION: NM MPI SPECT (REST AND/OR STRESS) MULTIPLE STUDIES REASON FOR STUDY: Chest pain. RADIOPHARMACEUTICAL: Rest: 11 mCi Tc-99m tetrofosmin Pharmacologic Stress: 33 mCi Tc-99m tetrofosmin Injection site: Left hand IV site TECHNIQUE: Standard myocardial perfusion SPECT images were obtained after resting tracer injection. Subsequently, an intravenous infusion of 0.4 mg Lexiscan was performed. Standard myocardial perfusion images wereobtained after tracer injection at the peak effect of the drug. COMPARISON: None FINDINGS: Image quality is adequate at rest and adequate at stress. There are no perfusion abnormalities. The left ventricular cavity size is normal . Gated tomographic images demonstrate normal wall motion and wallthickening with a left ventricular ejection fraction of 63 % poststress (normal>45%). IMPRESSION: 1. Normal myocardial perfusion study. No scintigraphic evidence of myocardial ischemia. 2. Normal left ventricular ejection fraction of 63 % poststress. 3. Normal wall motion. THIS IS AN ELECTRONICALLY VERIFIED FINAL REPORT 07/07/2025 11:59 AM - Electronically signed by Jeancarlos Clay M.D. LB T: Report ID: [id number] Reading Location: [id number] Brittnee Anderson CAP LINING MACHINE OPERATOR IMG NM PROCEDURES Final Result * Stress Test for Myocardial Perfusion (07/07/2025 11:44 AM CDT) Anatomical Region Laterality Modality Nuclear Medicine Impressions 07/07/2025 10:58 AM CDT 1. EKG portion of the stress test is negative for any acute changes suggestive of ischemia. 2. Nuclear images pending. I personally supervised and interpreted the stress test. Elfego Pimentel DO Copy to No, Physician 07/07/2025 Narrative 07/07/2025 10:58 AM CDT Patient Id: Case Holloway is a 49 y.o. male. MR#: [id number] Study date: July 07, 2025 EXAM DESCRIPTION: STRESS LEXISCAN MYOVIEW TECHNIQUE: Baseline EKG: Sinus bradycardia with anterior T-wave inversions Baseline blood pressure was 112/84 , and baseline heart rate was 54 beats per minute . Stress test was performed according to Lexiscan protocol. Blood pressure after Lexiscan infusion was 107/86, and post infusion heart rate was 74 beats per minute. There were no new EKG changes suggesting ischemia. There were no arrhythmias. SYMPTOMS: Patient denied chest pain or shortness of breath. Procedure Note Elfego Pimentel DO - 07/07/2025 Patient Id: Case Holloway is a 49 y.o. male. MR#: [id number] Study date: July 07, 2025 EXAM DESCRIPTION: STRESS LEXISCAN MYOVIEW TECHNIQUE: Baseline EKG: Sinus bradycardia with anterior T-wave inversions Baseline blood pressure was 112/84 , and baseline heart rate was 54 beatsper minute . Stress test was performed according to Lexiscan protocol. Blood pressure after Lexiscan infusion was 107/86, and post infusion heartrate was 74 beats per minute. There were no new EKG changes suggesting ischemia. There were noarrhythmias. SYMPTOMS: Patient denied chest pain or shortness of breath. IMPRESSION: 1. EKG portion of the stress test is negative for any acute changessuggestive of ischemia. 2. Nuclear images pending. I personally supervised and interpreted the stress test. Elfego Pimentel, DO Copy to No, Physician 07/07/2025 Brittnee Anderson NP CV STRESS PROCEDURES Final Resul t * ECG 12 lead (07/07/2025 9:08 AM CDT) Pathologist [facility] Ventricular Rate EKG/Min 58 BPM [facility] Atrial Rate 58 BPM [facility] OR-Interval (MSEC) 140 ms [facility] QRS-Interval (MSEC) 74 ms [facility] QT-Interval (MSEC) 452 ms [facility] QTc 443 ms [facility] P [place] 33 degrees [facility] R [place] 0 degrees [facility] T [place] 11 degrees [facility] Diagnosis Sinus bradycardia Low voltage QRS precordial leads Poor r wave progression associated with abnormal lead placement, obesity, pulmonary disease, anterior infarction. Abnormal ECG When compared with ECG of 06-JUL-2025 00:12, Nonspecific T wave abnormality has replaced inverted T waves in Lateral leads Confirmed by DEMAR MEJÍA M.D. ([id number]) on 07/07/2025 10:20:26 AM [facility] 07/07/2025 9:08 AM CDT 07/07/2025 10:20 AM CDT Mychal James MD ECG ORDERABLES Final Result [facility] * eGFR (07/07/2025 4:45 AM CDT) Pathologist [facility] eGFR >90 >=60 mL/min/1. 73 m2 Comment: Interpretive Data Reference Interval Normal >/= 90 mL/min/1.73m2 Mildly decreased* 60 - 89 mL/min/1.73m2 Mildly to moderately decreased 45 - 59 mL/min/1.73m2 Moderately to severely decreased 30 - 44 mL/min/1.73m2 Severely decreased 15 - 29 mL/min/1.73m2 Kidney Failure < 15 mL/min/1.73m2 *Relative to young adult level Estimated glomerular filtration rate is determined by the 2020 CKD-EPI equation recommended by the National Kidney Foundation (A Unifying Approach to GFR Estimation: Recommendations of the NKF-ASK Task Force on Reassessing the Inclusion of Race in Diagnosing Kidney Disease, JASN 2020). The CKD-EPI equation should not be used for patients with unstable renal function and has not been validated in children and those over 70. Current interpretive data was last reviewed 2021. Blood 07/07/2025 4:45 AM CDT 07/07/2025 4:53 AM CDT us Mychal James MD LAB BLOOD ORDERABLES F inal Result [facility] [address] [facility] Department [place] [address] * Differential, auto (07/07/2025 4:45 AM CDT) Pathologist [facility] Neutrophil abs 2.09 1.50 - 6.50 K/cumm Imm gran abs 0.01 0.00 - 0.10 K/cumm [facility] Lymphocyte abs 1.54 0.80 - 3.30 K/cumm [facility] Monocyte abs 0.29 0.20 - 0.80 K/cumm [facility] Eosinophil abs 0.07 0.00 - 0.50 K/cumm [facility] Basophil abs 0.01 0.00 - 0.10 K/cumm [facility] Neutrophil pct 52.3 % [facility] Comment: Interpretive Data Percent cell count reference ranges are not reported, since discordance with absolute values may lead to misinterpretation of CBC data. Current Interpretive Data was last revised on 2017. Imm gran pct 0.2 % [facility] Comment: Interpretive Data Percent cell count reference ranges are not reported, since discordance with absolute values may lead to misinterpretation of CBC data. Current Interpretive Data was last revised on 2017. Lymphocyte pct 38.4 % [facility] Comment: Interpretive Data Percent cell count reference ranges are not reported, since discordance with absolute values may lead to misinterpretation of CBC data. Current Interpretive Data was last revised on 2017. Monocyte pct 7.2 % [facility] Comment: Interpretive Data Percent cell count reference ranges are not reported, since discordance with absolute values may lead to misinterpretation of CBC data. Current Interpretive Data was last revised on 2017. Eosinophil pct 1.7 % [facility] Comment: Interpretive Data Percent cell count reference ranges are not reported, since discordance with absolute values may lead to misinterpretation of CBC data. Current Interpretive Data was last revised on 2017. Basophil pct 0.2 % [facility] Comment: Interpretive Data Percent cell count reference ranges are not reported, since discordance with absolute values may lead to misinterpretation of CBC data. Current Interpretive Data was last revised on 2017. Blood 07/07/2025 4:45 AM CDT 07/07/2025 4:53 AM CDT Mychal James MD LAB BLOOD ORDERABLES F inal Result Performing Organization Address [facility]/ZIP Co de Phone Number [address] [place] [address] * Thyroid Function [place] (07/07/2025 4:45 AM CDT) Pathologist [facility] TSH 2.97 0.30 - 4.20 mcIUnit/mL Blood 07/07/2025 4:45 AM CDT 07/07/2025 4:53 AM CDT Suze Richmond MD LAB BLOOD ORDERABLE S Final Result Performing Organization Address City/[facility]/ZIP Co de Phone Number [address] [employer] [place], [place] [id number] * (ABNORMAL) CBC with auto differential (07/07/2025 4:45 AM CDT) WBC 4.01 3.80 - 9.90 K/cumm Hgb 13.8 13.0 - 17.5 g/dL [facility] Hct 40.0 38.9 - 50.3 % [facility] Plt 69(L) 150 - 400 K/cumm [facility] MPV 11.3 9.1 - 12.[address] [facility] RBC 4.28(L) 4.30 - 5.80 M/cumm [facility] MCV 93.5 81.3 - 96.[address] [facility] MCH 32.2 27.1 - 33.[address] [facility] MCHC 34.5 32.3 - 35.7 g/dL [facility] RDW CV 14.1 11.1 - 14.9 % [facility] RDW SD 46.5 35.7 - 48.[address] [facility] NRBC abs 0.00 0.00 - 0.01 K/cumm [facility] Blood 07/07/2025 4:45 AM CDT 07/07/2025 4:53 AM CDT Mychal James MD LAB BLOOD ORDERABLES F inal Result Performing Organization Address City/[facility] Co de Phone Number [address] [employer] [place], [place] [id number] * Phosphorus (07/07/2025 4:45 AM CDT) [facility] Phosphorus, pl 3.7 2.3 - 4.5 mg/dL Blood 07/07/2025 4:45 AM CDT 07/07/2025 4:53 AM CDT Mychal James MD LAB BLOOD ORDERABLES F inal Result Performing Organization Address City/[facility]/ZIP Co de Phone Number [address] [place] [address] * Magnesium (07/07/2025 4:45 AM CDT) [facility] Magnesium 2.0 1.4 - 2.5 mg/dL Blood 07/07/2025 4:45 AM CDT 07/07/2025 4:53 AM CDT Mychal James MD LAB BLOOD ORDERABLES F inal Result [facility] [address] [facility] Department [place] [address] * (ABNORMAL) Comprehensive metabolic panel (07/07/2025 4:45 AM CDT) Sodium 138 135 - 145 mmol/L Potassium, pl 3.2(L) 3.3 - 4.9 mmol/L [facility] Chloride 99 97 - 110 mmol/L [facility] CO2 26 22 - 32 mmol/L [facility] Anion gap 13 2 - 15 mmol/L [facility] BUN 10 6 - 25 mg/dL [facility] Creatinine 0.80 0.80 - 1.30 mg/dL [facility] Glucose 88 70 - 199 mg/dL [facility] Comment: Interpretive Data Fasting glucose >/= 126 mg/dl is diagnostic for diabetes. Fasting is defined as no caloric intake for at least 8 hours. Fasting glucose between 100 mg/dl to 125 mg/dl is diagnostic of prediabetes. In a patient with classic symptoms of hyperglycemia or hyperglycemic crisis, a random glucose >/= 200 mg/dl is diagnostic for diabetes. In the absence of unequivocal hyperglycemia, results should be confirmed by repeat testing. The classification and Diagnosis of Diabetes Diabetes Care 2021; 46: S19-S40. Current interpretive data was last revised 2022. Calcium 9.1 8.5 - 10.3 mg/dL [facility] Bilirubin, total 1.3(H) 0.1 - 1.2 mg/dL [facility] Protein, pl 7.1 6.5 - 8.5 g/dL [facility] Albumin 4.1 3.5 - 5.0 g/dL [facility] Alk phos 101 40 - 130 Units/L [facility] ALT 47 7 - 55 Units/L [facility] AST 78(H) 10 - 50 Units/L [facility] Blood 07/07/2025 4:45 AM CDT 07/07/2025 4:53 AM CDT Mychal James MD LAB BLOOD ORDERABLES F inal Result [facility] [address] [facility] Department [place] [address] * TRANSTHORACIC ECHO (TTE) COMPLETE W DOPPLER/CF WO CONTRAST (07/06/2025 1:42 PM CDT) Estimated EF 55-60 % CONS SCIMAGE Anatomical Region Laterality Modality Ultrasound 07/06/2025 1:23 PM CDT Narrative 07/06/2025 6:05 PM CDT Transthoracic Echocardiographic Report Patient Name: CASE HOLLOWAY M : 1975 (49y 6m) Sex: M Study Date: 07/06/2025 01:23:05 PM Ht(Inch): 66 Wt(Lb): 218 BSA: 2.15 Silk Winding Machine Operator: SUSHANT Reagan,T Location: [id number] Order Provider: MYCHAL JAMES Heart Rate: 74 BMI: 35.18 BP: 132/93 Ref Provider: MYCHAL JAMES PROCEDURES: Echocardiographic Report: ([id number]) Transthoracic complete echo, 2D, spectral and tissue Doppler, color flow Doppler, M-mode. Technically difficult study due to: Technically difficult study due to Body Habitus. INDICATIONS: Chest pain. FINDINGS: Left Ventricle: Normal left ventricular cavity size. Concentric LV remodeling. Normal left ventricular systolic function. The Ejection Fraction is visually estimated to be 55-60 %. Diastolic Function E to A reversal Suggestive of abnormal relaxation during early diastole. Regional Wall Motion: Technically difficult to assess Left Ventricular wall motion. Right Ventricle: Normal right ventricular size. Normal right ventricular systolic function. Left Atrium: The left atrium is normal in size. Right Atrium: The right atrium is normal in size. Atrial Septum: No shunt by color Doppler. Mitral Valve: Mitral valve is not well visualized due to poor echo windows. There is trace mitral valve regurgitation. No mitral valve stenosis. Aortic Valve: Aortic valve not well visualized due to poor echo windows. No aortic regurgitation seen. No aortic valve stenosis. Tricuspid Valve: Tricuspid valve is not well visualized due to poor echo windows. No tricuspid regurgitation seen. Normal estimated pulmonary artery systolic pressure. No tricuspid valve stenosis. Pulmonic Valve: Pulmonic Valve not well visualized due to poor echo windows. No evidence of pulmonic regurgitation. Pericardium: Normal pericardium without evidence of pericardial effusion. No pericardial effusion noted. Aorta: Normal aortic root. The aortic Sinus is normal in size. IVC: IVC Not well visualized due to poor echo windows. CONCLUSIONS: 1. Technically difficult study due to poor acoustic windows. 2. Normal left ventricular cavity size. Concentric LV remodeling. Normal left ventricular systolic function. The Ejection Fraction is visually estimated to be 55-60 %. Diastolic Function E to A reversal Suggestive of abnormal relaxation during early diastole. 3. Unable to assess wall motion abnormality due to poor endocardial definition. 4. Normal right ventricular size. Normal right ventricular systolic function. 5. No significant valvular regurgitation or stenosis. 6. Normal pericardium without evidence of pericardial effusion. No pericardial effusion noted. MEASUREMENTS: 2D/MM Value Range Doppler Value LVIDd 2D 3.39 cm [ 3.50 - 5.70 ] AV Peak Samuel 1.14 m/s LVIDs 2D 2.20 cm [ 3.10 - 4.60 ] AV Peak PG 5.20 mmHg IVSd 2D 0.97 cm [ 0.60 - 1.20 ] LVOT Peak Samuel 0.78 m/s LVPWd 2D 1.22 cm [ 0.60 - 1.10 ] LVOT Peak PG 2.43 mmHg LV Thickness Ratio 0.80 MV E Peak Samuel 0.60 m/s LV Mass 2D 113.99 g MV A Peak Samuel 0.81 m/s LV Mass Index 2D 53.12 g/m2 MV E/A 0.70 ratio RWT 0.72 MV Decel Time 106.00 msec Visually Estimated EF 55-60 % Med E` Samuel 0.06 m/s LA Dimension 2D 3.20 cm [ 1.90 - 4.00 ] Lat E` Samuel 0.07 m/s LA Length 4C 5.08 cm Average E/E` 923.08 AoR Diam 2D 3.00 cm [ 2.00 - 3.70 ] PV Peak Samuel 0.71 m/s Ao Root Index 1.40 cm/m2 [ 1.00 - 2.00 ] PV Peak PG 2.02 mmHg - ATTESTATION: I have reviewed and interpreted the pertinent images and measurements of this study. I attest to the conclusions in the final report that is provided above. DISCLAIMER: The study images and the final report will be retained in the patient chart by the Echo Laboratory for the legally required time period. This chart constitutes the legal record of any testing performed. Electronically Signed By: Bernarda Bell MD 07/06/2025 6:05:06 PM CDT Procedure Note Bernarda Bell MD - 07/06/2025 Transthoracic Echocardiographic Report Patient Name: CASE HOLLOWAY M : 1975 (49y 6m) Sex: M Study Date: 07/06/2025 01:23:05 PM Ht(Inch): 66 Wt(Lb): 218 BSA: 2.15 [employer]k Winding Machine Operator: Artur Chan [facility],T Location: [id number] Order Provider:MYCHAL JAMES Heart Rate: 74 BMI: 35.18 BP: 132/93 Ref Provider: MYCHAL JAMES PROCEDURES: Echocardiographic Report: ([id number]) Transthoracic complete echo, 2D,spectral and tissue Doppler, color flow Doppler, M-mode. Technically difficult study due to: Technically difficult study due toBody Habitus. INDICATIONS: Chest pain. FINDINGS: Left Ventricle: Normal left ventricular cavity size. Concentric LVremodeling. Normal left ventricular systolic function. The Ejection Fraction is visuallyestimated to be 55-60 %. Diastolic Function E to A reversal Suggestive of abnormalrelaxation during early diastole. Regional Wall Motion: Technically difficult to assess Left Ventricularwall motion. Right Ventricle: Normal right ventricular size. Normal right ventricularsystolic function. Left Atrium: The left atrium is normal in size. Right Atrium: The right atrium is normal in size. Atrial Septum: No shunt by color Doppler. Mitral Valve: Mitral valve is not well visualized due to poor echowindows. There is trace mitral valve regurgitation. No mitral valve stenosis. Aortic Valve: Aortic valve not well visualized due to poor echo windows.No aortic regurgitation seen. No aortic valve stenosis. Tricuspid Valve: Tricuspid valve is not well visualized due to poor echowindows. No tricuspid regurgitation seen. Normal estimated pulmonary artery systolicpressure. No tricuspid valve stenosis. Pulmonic Valve: Pulmonic Valve not well visualized due to poor echowindows. No evidence of pulmonic regurgitation. Pericardium: Normal pericardium without evidence of pericardial effusion.No pericardial effusion noted. Aorta: Normal aortic root. The aortic Sinus is normal in size. IVC: IVC Not well visualized due to poor echo windows. CONCLUSIONS: 1. Technically difficult study due to poor acoustic windows. 2. Normal left ventricular cavity size. Concentric LV remodeling. Normalleft ventricular systolic function. The Ejection Fraction is visually estimated to be 55-60%. Diastolic Function E to A reversal Suggestive of abnormal relaxation during earlydiastole. 3. Unable to assess wall motion abnormality due to poor endocardialdefinition. 4. Normal right ventricular size. Normal right ventricular systolicfunction. 5. No significant valvular regurgitation or stenosis. 6. Normal pericardium without evidence of pericardial effusion. Nopericardial effusion noted. MEASUREMENTS: 2D/MM Value Range DopplerValue LVIDd 2D 3.39 cm [ 3.50 - 5.70 ] AV Peak Vel1.14 m/s LVIDs 2D 2.20 cm [ 3.10 - 4.60 ] AV Peak PG5.20 mmHg IVSd 2D 0.97 cm [ 0.60 - 1.20 ] LVOT Peak Vel0.78 m/s LVPWd 2D 1.22 cm [ 0.60 - 1.10 ] LVOT Peak PG2.43 mmHg LV Thickness Ratio 0.80 MV E Peak Vel0.60 m/s LV Mass 2D 113.99 g MV A Peak Vel0.81 m/s LV Mass Index 2D 53.12 g/m2 MV E/A0.70 ratio RWT 0.72 MV Decel Erpl014.00 msec Visually Estimated EF 55-60 % Med E` Vel0.06 m/s LA Dimension 2D 3.20 cm [ 1.90 - 4.00 ] Lat E` Vel0.07 m/s LA Length 4C 5.08 cm Average E/E`923.08 AoR Diam 2D 3.00 cm [ 2.00 - 3.70 ] PV Peak Vel0.71 m/s Ao Root Index 1.40 cm/m2 [ 1.00 - 2.00 ] PV Peak PG2.02 mmHg - ATTESTATION: I have reviewed and interpreted the pertinent images and measurements ofthis study. I attest to the conclusions in the final report that is provided above. DISCLAIMER: The study images and the final report will be retained in the patientchart by the [facility] for the legally required time period. This chart constitutesthe legal record of any testing performed. Electronically Signed By: Bernarda Bell MD 07/06/2025 6:05:06 PM CDT us Mychal James MD CV ECHO PROCEDURES Fin al Result * Troponin T high-sensitivity 6-hour (07/06/2025 8:17 AM CDT) Trop T hs <6 <=22 ng/L Comment: Interpretive Data For further hscTnT resources including the diagnostic algorithm and an aid in interpretation, copy and paste this link: https://nrl.testcatalog.org/show/hsTrop Current Interpretive Data last revised 2020. Trop T hs delta 0 ng/L [facility] WILCOX Trop T hs interp Insignificant [facility] Blood 07/06/2025 8:17 AM CDT 07/06/2025 8:21 AM CDT Serge BLACK LAB BLOOD ORDERABLES Final R esult [facility] [address] [facility] Department [place] [address] * (ABNORMAL) Lipid panel (07/06/2025 8:17 AM CDT) Cholesterol 269(H) 30 - 199 mg/dL Comment: Interpretive Data Ages < or = 19 years Acceptable: <170 mg/dL Borderline high: 170-199 mg/dL High: >or= 200 mg/dL Ages > or = 20 years Desirable: <200 mg/dL Borderline high: 200-239 mg/dL High: >or= 240 mg/dL Literature References: 1. Expert Panel on Integrated Guidelines for Cardiovascular Health and Risk Reduction in Children and Adolescents. Pediatrics 2011;128:S213 2. NCEP Expert Panel. Circulation 2004;110:227 Current Interpretive Data was last revised on 2018. Triglycerides 139 <=149 mg/dL [facility] WILCOX Comment: Interpretive Data Ages < or = 9 years Acceptable: <75 mg/dL Borderline high: 75-99 mg/dL High: >or= 100 mg/dL Ages 10 to 20 years Acceptable: <90 mg/dL Borderline high: 90-129 mg/dL High: >or= 130 mg/dL Ages > or = 20 years Desirable: <150 mg/dL Borderline high: 150-199 mg/dL High: 200-499 mg/dL Very high: >or= 499 mg/dL Literature References: 1. Expert Panel on Integrated Guidelines for Cardiovascular Health and Risk Reduction in Children and Adolescents. Pediatrics 2011;128:S213 2. NCEP Expert Panel. Circulation 2004;110:227 Current Interpretive Data was last revised on 2018. HDL 65 >=40 mg/dL [facility] WILCOX Comment: Interpretive Data Ages < or = 19 years Acceptable: >45 mg/dL Borderline low: 40-45 mg/dL Low: <40 mg/dL Ages > or = 20 years Desirable: >or= 60 mg/dL Low: <40 mg/dL Literature References: 1. Expert Panel on Integrated Guidelines for Cardiovascular Health and Risk Reduction in Children and Adolescents. Pediatrics 2011;128:S213 2. NCEP Expert Panel. Circulation 2004;110:227 Current Interpretive Data was last revised on 2018. LDL, calculated 179(H) <=129 mg/dL [facility] Comment: Interpretive Data Ages < or = 19 years Acceptable: <110 mg/dL Borderline high: 110-129 mg/dL High: >or= 130 mg/dL Ages > or = 20 years Optimal: <100 mg/dL Near optimal: 100-129 mg/dL Borderline high: 130-159 mg/dL High: >160 mg/dL Calculated using the [place] LDL-C estimating equation. This equation was implemented on 2024. Prior to this date LDL-C was estimated using the Friedewald equation. Literature References: 1. Expert Panel on Integrated Guidelines for Cardiovascular Health and Risk Reduction in Children and Adolescents. Pediatrics 2011;128:S213 2. NCEP Expert Panel. Circulation 2004;110:227 3. Zelalem Vallejo et al. DASHA Cardiol. 2020 January 20;5(5):540-548. doi: 10.1001/[email or web address].2020.0013 Current Interpretive Data was last revised on 2024. Non-HDL Cholesterol 204 mg/dL [facility] Comment: Interpretive Data Ages < or = 19 years Acceptable: <120 mg/dL Borderline high: 120-144 mg/dL High: >145 mg/dL Ages > or = 20 years When triglycerides are >200 mg/dL, Non-HDL cholesterol is a secondary target of therapy with treatment goals that are 30 mg/dL greater than the LDL cholesterol target. Literature References: 1. Expert Panel on Integrated Guidelines for Cardiovascular Health and Risk Reduction in Children and Adolescents. Pediatrics 2011;128:S213 2. NCEP Expert Panel. Circulation 2004;110:227 Current Interpretive Data was last revised on 2018. Chol/HDL ratio 4 [facility] Blood 07/06/2025 8:17 AM CDT 07/06/2025 8:21 AM CDT us Mychal James MD LAB BLOOD ORDERABLES F inal Result [facility] [address] [facility] Department [place] [address] * CT Head WO Contrast (07/06/2025 7:43 AM CDT) Anatomical Region Laterality Modality Head and Neck N/A Computed Tomogra phy 07/06/2025 7:5 1 AM CDT Narrative 07/06/2025 7:54 AM CDT EXAM DESCRIPTION: CT HEAD WO CONTRAST REASON FOR STUDY: Syncope/presyncope, cerebrovascular cause suspected States chest pains since 1899 yesterday, pt vomited causing light headedness TECHNIQUE: Axial images acquired through the brain without intravenous contrast. Images stored on PACS. Automated exposure control was used as a dose optimization technique for this examination. COMPARISON: None. FINDINGS: BRAIN: No acute intraparenchymal hemorrhage, cerebral edema, hydrocephalus, mass, or mass effect. EXTRA-AXIAL SPACES: No extra-axial fluid collection or mass. CALVARIUM: No acute skull base or calvarial abnormality. SINUSES/MASTOIDS: Predominantly clear. ORBITS: No significant abnormality. Status post cataract procedure. OTHER: No other significant abnormality. IMPRESSION: No evidence of an acute intracranial abnormality. THIS IS AN ELECTRONICALLY VERIFIED FINAL REPORT 07/06/2025 7:54 AM - Electronically signed by Denis Roach M.D. T: Report ID: [id number] Reading Location: [id number] Procedure Note Denis Roach MD - 07/06/2025 EXAM DESCRIPTION: CT HEAD WO CONTRAST REASON FOR STUDY: Syncope/presyncope, cerebrovascular cause suspected States chest pains since 1899 yesterday, pt vomited causing lightheadedness TECHNIQUE: Axial images acquired through the brain without intravenous contrast. Images stored on PACS. Automated exposure control was used asa dose optimization technique for this examination. COMPARISON: None. FINDINGS: BRAIN: No acute intraparenchymal hemorrhage, cerebral edema,hydrocephalus, mass, or mass effect. EXTRA-AXIAL SPACES: No extra-axial fluid collection or mass. CALVARIUM: No acute skull base or calvarial abnormality. SINUSES/MASTOIDS: Predominantly clear. ORBITS: No significant abnormality. Status post cataract procedure. OTHER: No other significant abnormality. IMPRESSION: No evidence of an acute intracranial abnormality. THIS IS AN ELECTRONICALLY VERIFIED FINAL REPORT 07/06/2025 7:54 AM - Electronically signed by Densi Roach M.D. T: Report ID: [id number] Reading Location: [place] [address] Mychal James MD IMG CT PROCEDURES Cristina l Result * Troponin T high-sensitivity 4-hour (07/06/2025 5:52 AM CDT) Trop T hs <6 <=22 ng/L Comment: Interpretive Data For further hscTnT resources including the diagnostic algorithm and an aid in interpretation, copy and paste this link: https://nrl.testcatalog.org/show/hsTrop Current Interpretive Data last revised 2020. Trop T hs delta 0 ng/L [facility] Trop T hs interp Insignificant [facility] Blood 07/06/2025 5:52 AM CDT 07/06/2025 6:00 AM CDT Serge BLACK LAB BLOOD ORDERABLES Final R esult [facility] [address] [facility] Department [place] [address] * Drug Screen, Urine L and D with Reflex Confirmation (07/06/2025 5:52 AM CDT) Amphetamine, ur Not Detected CutOff 500ng/mL Comment: Interpretive Data - Amphetamines: Samples containing greater than 500 ng/mL d-methamphetamine or other cross-reacting amphetamine compounds are reported as positive. Amphetamine immunoassays are subject to significant false positive rates due to cross-reactivity of non-amphetamine drugs. Confirmatory testing required for definitive results. Current Interpretive Data was last reviewed 2023. Barbiturates, ur Not Detected CutOff 200ng/mL [facility] Comment: Interpretive Data - Barbiturates: Samples containing greater than 200 ng/mL secobarbital or other cross-reacting barbiturate compounds are reported as positive. False positive and false negative results are possible. Confirmatory testing required for definitive results. Current Interpretive Data was last reviewed 2023. Benzodiazepines, ur Not Detected CutOff 100ng/mL [facility] Comment: Interpretive Data - Benzodiazepines: Samples containing greater than 100 ng/mL nordiazepam or other cross-reacting compounds are reported as positive. False positive and false negative results are possible. Confirmatory testing required for definitive results. Current Interpretive Data was last reviewed 2023. Cannabinoids, ur Not Detected CutOff 50 ng/mL [facility] Comment: Interpretive Data - Cannabinoids: Samples containing greater than 50 ng/mL delta-9 THC -COOH or other cross- reacting compounds are reported as positive. False positive and false negative results are possible. Confirmatory testing required for definitive results. Current Interpretive Data was last reviewed 2023. Cocaine, ur Not Detected CutOff 150ng/mL [facility] Comment: Interpretive Data - Cocaine: Samples containing greater than 150 ng/mL benzoylecgonine or other cross- reacting compounds are reported as positive. False positive and false negative results are possible. Confirmatory testing required for definitive results. Current Interpretive Data was last reviewed 2023. Fentanyl, Ur Not Detected CutOff 5 ng/mL [facility] Comment: Interpretive Data - Fentanyl: Samples containing greater than 5 ng/mL norfentanyl, fentanyl, or other cross-reacting fentanyl compounds are reported as positive. False positive and false negative results are possible. Confirmatory testing required for definitive results. Current Interpretive Data was last reviewed 2023. Methadone, ur Not Detected CutOff 300ng/mL [facility] Comment: Interpretive Data - Methadone: Samples containing greater than 300 ng/mL d,l-methadone or other cross-reacting compounds are reported as positive. False positive and false negative results are possible. Confirmatory testing required for definitive results. Current Interpretive Data was last reviewed 2023. Opiates, ur Not Detected CutOff 300ng/mL [facility] Comment: Interpretive Data - Opiates: Samples containing greater than 300 ng/mL morphine or other cross-reacting compounds are reported as positive. False positive and false negative results are possible. Confirmatory testing required for definitive results. Current Interpretive Data was last reviewed 2023. Oxycodone, ur Not Detected CutOff 100ng/mL [facility] Comment: Interpretive Data - Oxycodone: Samples containing greater than 100 ng/mL oxycodone or other cross-reacting compounds are reported as positive. False positive and false negative results are possible. Confirmatory testing required for definitive results. Current Interpretive Data was last reviewed 2023. Phencyclidine, ur Not Detected CutOff 25 ng/mL [facility] Comment: Interpretive Data - Phencyclidine: Samples containing greater than 25 ng/mL phencyclidine or other cross-reacting compounds are reported as positive. False positive and false negative results are possible. Confirmatory testing required for definitive results. Current Interpretive Data was last reviewed 2023. Urine Creatinine 323 mg/dL [facility] Comment: Interpretive Data Urine Creatinine: < 10 mg/dL is extremely dilute = or > 10 but < 20 mg/dL is dilute = or > 20 mg/dL is normal Current Interpretive Data was last revised on 2017. Urine 07/06/2025 5:52 AM CDT 07/06/2025 6:00 AM CDT Narrative [facility] - 07/06/2025 6:30 AM CDT Drug of Abuse screening is performed by immunoassay for medical purposes only. This is not to be used for Pain Management purposes. If Detected, confirmation testing will be performed for Amphetamines, Barbiturates, Benzodiazepines, Cannabinoids, Cocaine, Fentanyl, Methadone, Opiates, Oxycodone or Phencyclidine. Mychal James MD LAB URINE ORDERABLES F inal Result [facility] [address] [facility] Department [place] [address] * Troponin T high-sensitivity 2-hour (07/06/2025 3:58 AM CDT) Trop T hs <6 <=22 ng/L Comment: Interpretive Data For further hscTnT resources including the diagnostic algorithm and an aid in interpretation, copy and paste this link: https://[email or web address] [email or web address]/show/hsTrop Current Interpretive Data last revised 2020. Trop T hs delta 0 ng/L [facility] Trop T hs interp Insignificant [facility] Blood 07/06/2025 3:58 AM CDT 07/06/2025 4:01 AM CDT Serge BLACK LAB BLOOD ORDERABLES Final R esult Performing Organization Address City/[facility] Co de Phone Number [facility] [address] [place] [address] * Ethanol (07/06/2025 3:58 AM CDT) Pathologist [facility] Ethanol <10 <=10 mg/dL Comment: Interpretive Data Legal limit of intoxication > or = 80 mg/dL Levels > or = 400 mg/dL are potentially TOXIC. Current interpretive data was last revised on 2018. Blood 07/06/2025 3:58 AM CDT 07/06/2025 4:01 AM CDT Mychal James MD LAB BLOOD ORDERABLES F inal Result Performing Organization Address City/[facility] Co de Phone Number [place] [place] [address] * Troponin T high-sensitivity series (baseline, 2hr, 4hr, 6hr) (07/06/2025 2:05 AM CDT) Pathologist [facility] Trop T hs <6 <=22 ng/L Comment: Interpretive Data For further hscTnT resources including the diagnostic algorithm and an aid in interpretation, copy and paste this link: https://nrl.testcatCallio [email or web address]/show/hsTrop Current Interpretive Data last revised 2020. Blood 07/06/2025 2:05 AM CDT 07/06/2025 2:09 AM CDT Serge BLACK LAB BLOOD ORDERABLES Final R esult Performing Organization Address [facility] Co de Phone Number [facility] [address] [address] * eGFR (07/06/2025 2:05 AM CDT) eGFR >90 >=60 mL/min/1. 73 m2 Comment: Interpretive Data Reference Interval Normal >/= 90 mL/min/1.73m2 Mildly decreased* 60 - 89 mL/min/1.73m2 Mildly to moderately decreased 45 - 59 mL/min/1.73m2 Moderately to severely decreased 30 - 44 mL/min/1.73m2 Severely decreased 15 - 29 mL/min/1.73m2 Kidney Failure < 15 mL/min/1.73m2 *Relative to young adult level Estimated glomerular filtration rate is determined by the 2020 CKD-EPI equation recommended by the National Kidney Foundation (A Unifying Approach to GFR Estimation: Recommendations of the NKF-ASK Task Force on Reassessing the Inclusion of Race in Diagnosing Kidney Disease, JASN 2020). The CKD-EPI equation should not be used for patients with unstable renal function and has not been validated in children and those over 70. Current interpretive data was last reviewed 2021. Blood 07/06/2025 2:05 AM CDT 07/06/2025 2:09 AM CDT Serge BLACK LAB BLOOD ORDERABLES Final R esult Performing Organization Address [facility]/ZIP Co de Phone Number [facility] [address] [place] [address] * (ABNORMAL) ALT (07/06/2025 2:05 AM CDT) ALT 58(H) 7 - 55 Units/L Blood 07/06/2025 2:05 AM CDT 07/06/2025 2:09 AM CDT us Derick Rutledge MD LAB BLOOD ORDERABLES Final Resul t Performing Organization Address [facility] de Phone Number [address] [place] [address] * (ABNORMAL) AST (07/06/2025 2:05 AM CDT) AST 108(H) 10 - 50 Units/L Comment:Hemolyzed; result ma y be falsely elevated Blood 07/06/2025 2:05 AM CDT 07/06/2025 2:09 AM CDT us Derick Rutledge MD LAB BLOOD ORDERABLES Final Resul t Performing Organization Address [facility] de Phone Number [address] [place] [address] * Potassium (07/06/2025 2:05 AM CDT) Potassium, pl 3.8 3.3 - 4.9 mmol/L Comment:Hemolyzed; Potassium value may be falsely elevated by as much as 1.0 mmol/L. Suggest redraw and reanalysis. Blood 07/06/2025 2:05 AM CDT 07/06/2025 2:09 AM CDT us Derick Rutledge MD LAB BLOOD ORDERABLES Final Resul t Performing Organization Address [facility] de Phone Number [address] [place] [address] * (ABNORMAL) Comprehensive metabolic panel (07/06/2025 2:05 AM CDT) Sodium 139 135 - 145 mmol/L Potassium, pl 3.8 3.3 - 4.9 mmol/L [facility] Comment:Hemolyzed; Potassium value may be falsely elevated by as much as 1.0 mmol/L. Suggest redraw and reanalysis. Chloride 102 97 - 110 mmol/L [facility] CO2 21(L) 22 - 32 mmol/L [facility] Anion gap 16(H) 2 - 15 mmol/L [facility] BUN 11 6 - 25 mg/dL [facility] Creatinine 0.70(L) 0.80 - 1.30 mg/dL [facility] Glucose 130 70 - 199 mg/dL [facility] Comment: Interpretive Data Fasting glucose >/= 126 mg/dl is diagnostic for diabetes. Fasting is defined as no caloric intake for at least 8 hours. Fasting glucose between 100 mg/dl to 125 mg/dl is diagnostic of prediabetes. In a patient with classic symptoms of hyperglycemia or hyperglycemic crisis, a random glucose >/= 200 mg/dl is diagnostic for diabetes. In the absence of unequivocal hyperglycemia, results should be confirmed by repeat testing. The classification and Diagnosis of Diabetes Diabetes Care 2021; 46: S19-S40. Current interpretive data was last revised 2022. Calcium 9.3 8.5 - 10.3 mg/dL [facility] Bilirubin, total 1.2 0.1 - 1.2 mg/dL [facility] Protein, pl 7.8 6.5 - 8.5 g/dL [facility] Albumin 4.4 3.5 - 5.0 g/dL [facility] Alk phos 119 40 - 130 Units/L [facility] ALT 58(H) 7 - 55 Units/L [facility] AST 108(H) 10 - 50 Units/L [facility] Comment:Hemolyzed; result ma y be falsely elevated Blood 07/06/2025 2:05 AM CDT 07/06/2025 2:09 AM CDT Serge BLACK LAB BLOOD ORDERABLES Final R esult [facility] [address] [facility] [place] [address] * XR Chest 1 Vw Portable (If patient hemodynamically UNstable or UNable to ambulate) (07/06/2025 12:19 AM CDT) Anatomical Region Laterality Modality Body, Chest N/A Computed Radiogr aphy 07/06/2025 12:3 2 AM CDT Narrative 07/06/2025 12:32 AM CDT EXAM DESCRIPTION: XR CHEST 1 VIEW REASON FOR STUDY: chest pain Pt bibems with c/o chest pain since 1900. Reports after the pain started patient vomited, became light headed. Reports midsternal chest pain with no radiation, endorses shortness of breath. Denies cardiac history. Received 324 ASA en route. TECHNIQUE: 1 radiographic view(s) of the chest. COMPARISON: 10/27/2022 FINDINGS: LUNGS: No focal opacity, pleural effusion, or pneumothorax. HEART/MEDIASTINUM: Cardiac silhouette normal in size. Mediastinal and hilar contours appear normal. LINES/TUBES: None. BONES: No acute osseous abnormality. IMPRESSION: No acute cardiopulmonary abnormality. THIS IS AN ELECTRONICALLY VERIFIED FINAL REPORT 07/06/2025 12:32 AM - Electronically signed by Yusef Underwood M.D. KT T: Report ID: [id number] Reading Location: [place] [address] Procedure Note Yusef Underwood MD - 07/06/2025 EXAM DESCRIPTION: XR CHEST 1 VIEW REASON FOR STUDY: chest pain Pt bibems with c/o chest pain since 1900. Reports after the pain started patient vomited, became light headed. Reports midsternal chest pain withno radiation, endorses shortness of breath. Denies cardiac history. [id number] ASA en route. TECHNIQUE: 1 radiographic view(s) of the chest. COMPARISON: 10/27/2022 FINDINGS: LUNGS: No focal opacity, pleural effusion, or pneumothorax. HEART/MEDIASTINUM: Cardiac silhouette normal in size. Mediastinal andhilar contours appear normal. LINES/TUBES: None. BONES: No acute osseous abnormality. IMPRESSION: No acute cardiopulmonary abnormality. THIS IS AN ELECTRONICALLY VERIFIED FINAL REPORT 07/06/2025 12:32 AM - Electronically signed by Yusef Underwood M.D. KT T: Report ID: [id number] Reading Location: [place] [address] us Derick Rutledge MD IMG XR PROCEDURES Final Result * ECG 12 lead (07/06/2025 12:12 AM CDT) Ventricular Rate EKG/Min 77 BPM [facility] Atrial Rate 77 BPM [facility] OR-Interval (MSEC) 126 ms [facility] QRS-Interval (MSEC) 82 ms [facility] QT-Interval (MSEC) 394 ms [facility] QTc 445 ms [facility] P [place] 8 degrees [facility] R [place] -9 degrees [facility] T [place] 4 degrees [facility] Diagnosis Normal sinus rhythm Low voltage QRS Cannot rule out Anterior infarct (cited on or before 06-JUL-2025) T wave abnormality, consider lateral ischemia Abnormal ECG When compared with ECG of 02-DEC-2023 19:46 Confirmed by BERNARDA BELL M.D. ([id number]) on 07/06/2025 9:15:30 AM [facility] 07/06/2025 12:1 2 AM CDT 07/06/2025 9:15 AM CDT us Derick Rutledge MD ECG ORDERABLES Final Result [facility] [place] * eGFR (07/06/2025 12:12 AM CDT) Pathologist [facility] eGFR >90 >=60 mL/min/1. 73 m2 Comment: Interpretive Data Reference Interval Normal >/= 90 mL/min/1.73m2 Mildly decreased* 60 - 89 mL/min/1.73m2 Mildly to moderately decreased 45 - 59 mL/min/1.73m2 Moderately to severely decreased 30 - 44 mL/min/1.73m2 Severely decreased 15 - 29 mL/min/1.73m2 Kidney Failure < 15 mL/min/1.73m2 *Relative to young adult level Estimated glomerular filtration rate is determined by the 2020 CKD-EPI equation recommended by the National Kidney Foundation (A Unifying Approach to GFR Estimation: Recommendations of the NKF-ASK Task Force on Reassessing the Inclusion of Race in Diagnosing Kidney Disease, JASN 2020). The CKD-EPI equation should not be used for patients with unstable renal function and has not been validated in children and those over 70. Current interpretive data was last reviewed 2021. Blood 07/06/2025 12:1 2 AM CDT 07/06/2025 12:30 AM CDT us Derick Rutledge MD LAB BLOOD ORDERABLES Final Resul t [facility] [address] [facility] [place] [address] * Differential, auto (07/06/2025 12:12 AM CDT) Neutrophil abs 5.44 1.50 - 6.50 K/cumm Imm gran abs 0.03 0.00 - 0.10 K/cumm [facility] Lymphocyte abs 0.90 0.80 - 3.30 K/cumm [facility] Monocyte abs 0.44 0.20 - 0.80 K/cumm [facility] Eosinophil abs 0.01 0.00 - 0.50 K/cumm [facility] [facility] Basophil abs 0.02 0.00 - 0.10 K/cumm [facility] Neutrophil pct 79.6 % [facility] Comment: Interpretive Data Percent cell count reference ranges are not reported, since discordance with absolute values may lead to misinterpretation of CBC data. Current Interpretive Data was last revised on 2017. Imm gran pct 0.4 % [facility] Comment: Interpretive Data Percent cell count reference ranges are not reported, since discordance with absolute values may lead to misinterpretation of CBC data. Current Interpretive Data was last revised on 2017. Lymphocyte pct 13.2 % [facility] Comment: Interpretive Data Percent cell count reference ranges are not reported, since discordance with absolute values may lead to misinterpretation of CBC data. Current Interpretive Data was last revised on 2017. Monocyte pct 6.4 % [facility] Comment: Interpretive Data Percent cell count reference ranges are not reported, since discordance with absolute values may lead to misinterpretation of CBC data. Current Interpretive Data was last revised on 2017. Eosinophil pct 0.1 % [facility] Comment: Interpretive Data Percent cell count reference ranges are not reported, since discordance with absolute values may lead to misinterpretation of CBC data. Current Interpretive Data was last revised on 2017. Basophil pct 0.3 % [facility] Comment: Interpretive Data Percent cell count reference ranges are not reported, since discordance with absolute values may lead to misinterpretation of CBC data. Current Interpretive Data was last revised on 2017. Blood 07/06/2025 12:1 2 AM CDT 07/06/2025 12:30 AM CDT us Derick Rutledge MD LAB BLOOD ORDERABLES Final Resul t Performing Organization Address [facility] Co de Phone Number [facility] [address] [place] [address] * (ABNORMAL) CBC with auto differential (07/06/2025 12:12 AM CDT) WBC 6.84 3.80 - 9.90 K/cumm Hgb 14.8 13.0 - 17.5 g/dL [facility] Hct 41.9 38.9 - 50.3 % [facility] Plt 88(L) 150 - 400 K/cumm [facility] MPV 11.3 9.1 - 12.[address] [facility] RBC 4.51 4.30 - 5.80 M/cumm [facility] MCV 92.9 81.3 - 96.[address] [facility] MCH 32.8 27.1 - 33.[address] [facility] MCHC 35.3 32.3 - 35.7 g/dL [facility] RDW CV 13.9 11.1 - 14.9 % [facility] RDW SD 45.9 35.7 - 48.[address] [facility] NRBC abs 0.00 0.00 - 0.01 K/cumm [facility] Blood Venous blood specimen / Unknown 07/06/2025 12:12 AM CDT 07/06/2025 12:30 AM CDT us Derick Rutledge MD LAB BLOOD ORDERABLES Final Resul t Performing Organization Address [facility] Co de Phone Number [address] [place] [address] * Hemoglobin A1c (07/06/2025 12:12 AM CDT) Hgb A1C 5.1 4.0 - 5.6 % Estimated Average Glucose 100 mg/dL [facility] Comment: The ADA recommends reporting an estimated Average Glucose (eAG) with all Hemoglobin A1c results using the equation derived from a study of 507 normal and diabetic adults. Minority populations were underrepresented and children were not included. (Diabetes Care 31:9184-8729, 2008). The eAG is not equivalent to a fasting glucose. Blood 07/06/2025 12:1 2 AM CDT 07/06/2025 12:30 AM CDT Mychal James MD LAB BLOOD ORDERABLES F inal Result [facility] [address] [facility] [place] [address] * (ABNORMAL) Comprehensive metabolic panel (07/06/2025 12:12 AM CDT) Pathologist [facility] Sodium 138 135 - 145 mmol/L Potassium, pl See Comment 3.3 - 4.[address] [facility] Comment:Credited; Hemolyzed Specimen Chloride 99 97 - 110 mmol/L [facility] CO2 23 22 - 32 mmol/L [facility] Anion gap 16(H) 2 - 15 mmol/L [facility] BUN 10 6 - 25 mg/dL [facility] Creatinine 0.73(L) 0.80 - 1.30 mg/dL [facility] Glucose 127 70 - 199 mg/dL [facility] Comment: Interpretive Data Fasting glucose >/= 126 mg/dl is diagnostic for diabetes. Fasting is defined as no caloric intake for at least 8 hours. Fasting glucose between 100 mg/dl to 125 mg/dl is diagnostic of prediabetes. In a patient with classic symptoms of hyperglycemia or hyperglycemic crisis, a random glucose >/= 200 mg/dl is diagnostic for diabetes. In the absence of unequivocal hyperglycemia, results should be confirmed by repeat testing. The classification and Diagnosis of Diabetes Diabetes Care 2021; 46: S19-S40. Current interpretive data was last revised 2022. Calcium 9.3 8.5 - 10.3 mg/dL [facility] Bilirubin, total 1.2 0.1 - 1.2 mg/dL [facility] Protein, pl 8.0 6.5 - 8.5 g/dL [facility] Albumin 4.3 3.5 - 5.0 g/dL [facility] Alk phos 114 40 - 130 Units/L [facility] ALT See Comment 7 - [address] [facility] Comment:Credited; Hemolyzed Specimen AST See Comment [address] [facility] Comment:Credited; Hemolyzed Specimen Blood 07/06/2025 12:1 2 AM CDT 07/06/2025 12:30 AM CDT us Derick Rutledge MD LAB BLOOD ORDERABLES Final Resul t [facility] [address] [facility] Department [place] [address] * Hepatitis panel, acute (10/28/2022 6:09 AM MANAGER COUNCIL) Hep A IgM Nonreactive Nonreactive [facility] Comment: Interpretive Data: If Hep A IgM Ab is reported as Equivocal, a new sample should be drawn in two weeks for testing. Current interpretive data was last revised on 19. Hep B core IgM Nonreactive Nonreactive [facility] Comment: Interpretive Data If HepB Core IgM Ab is reported as Equivocal, a new sample should be drawn in two weeks for testing. Current interpretive data was last revised on 19. Hep C Ab Nonreactive Nonreactive [facility] Comment: Interpretive Data Nonreactive: Antibodies to HCV not detected. Does NOT exclude the possibility of recent exposure to HCV. Equivocal: Equivocal for HCV antibodies. Supplemental molecular testing will be automatically performed to determine infection status in accordance with current CDC screening recommendations. Reactive: Positive for HCV antibodies. This may represent current or past HCV infection. Supplemental molecular testing will be automatically performed to determine current infection status in accordance with current CDC screening recommendations. Interpretive data was last revised on 2019. HepBsAg Nonreactive Nonreactive [facility] Blood 10/28/2022 6:09 AM MANAGER COUNCIL 10/28/2022 8:49 AM MANAGER COUNCIL Stephanie Montaño DO LAB MICROBIOLOGY - GENERAL OR DERABLES Final Result Performing Organization Address [facility]/ZIP Co de Phone Number [place] [id number] [place] [address] * PSA screen (10/01/2022 10:39 AM MANAGER COUNCIL) PSA-Total <0.10 ng/mL [facility] Comment: Interpretive Data AGE SEX REFERENCE INTERVAL 0 minutes-150 years Female None 0 minutes-49 years Male None 50-59 years Male 0-3.90 60-69 years Male 0-5.40 70-79 years Male 0-6.20 80-150 years Male 0-6.20 The Roxy PSA Total assay procedure was used. Results from different manufacturers or methods may not be comparable. Serial testing should be performed using the same method. Current interpretive data last revised 22. Testing performed by: [facility], [address] [place] [address]., [id number] Blood 10/01/2022 10:3 9 AM MANAGER COUNCIL 10/01/2022 11:48 AM MANAGER COUNCIL Emely Gómez CAP LINING MACHINE OPERATOR LAB BLOOD ORDERABLES Final Resul t Performing Organization Address [facility] Co de Phone Number [facility] [place] [address] from Last 3 Months or Most Recently Relevant to Health Maintenance Additional Health Concerns Infection Onset Date Last Indicated Kylah auris, Exposure Comment:Possibly exposure to C. Auris on 07/06/25. 07/06/2025 Insurance [facility] Advance Directives For more information, please contact: [phone] * Full Code (Latest Code Status on File) Date Activated Date Inactivated Comments 07/06/2025 6:13 AM 07/08/2025 5:12 PM * Full Code Date Activated Date Inactivated Comments 11/24/2023 11:13 PM 11/26/2023 2:38 PM * Full Code Date Activated Date Inactivated Comments 10/27/2022 5:22 PM 10/29/2022 4:55 PM * Full Code Date Activated Date Inactivated Comments 09/06/2022 12:45 PM 09/07/2022 10:11 PM * Full Code Date Activated Date Inactivated Comments 09/05/2022 5:09 AM 09/06/2022 12:45 PM Care Teams Cargo Checker Relationship Specialty Start Date End Date No, Physician PCP - General 07/06/25
--- OUTSIDE RECORDS SUMMARY | 2025-07-14 00:41 | XMS_ITS | Data Portability ---
Author Organization [facility]/[employer]/[facility] SI 11) Address [address] [place] [id number] Care Team Providers Care Cardiovascular Surgeon Name Role Phone AL SCHEDULING, ATTN: JOSE Primary Care Provider Unavailable Unavailable Referring Provider Assessment No assessment recorded. Plan of Treatment Reminders Order Date Submit Date Provider Last Modified By Organization Details Last Modified Time Details Appointments None record ed. Lab None record ed. Referral None record ed. Procedures None record ed. Surgeries None record ed. Imaging None record ed. Medication Orders None record ed. Patient TargetsNo targets recorded. Patient InstructionsNo instructions recorded. Reason for Referral None Reported. Procedures Surgical History Date Name Laterality Status Provider Name and Address Organization Details Recorded Time 05/27/2025 Sleep Study completed Gustavo Forbes MD, F.C.C.P. [address] [place] [address], [place], [address], [facility] 05/31/2025 08:20:17 Imaging Results None recorded. Procedure Notes None recorded. Medical Equipment None Reported. Vitals Date Recorded Body height Body mass index (BMI) Body weight Provider Name and Address Organization Details Last Updated DateTime 05/27/2025 167.64 cm 36.2 kg/m2 979084.69 g Carlos Pardo [facility] 05/30/2025 15:20:31 Social History None recorded. Functional Status None recorded. Mental Status None recorded. Family History Nothing Reported. Medical History No medical history recorded. Past Encounters Encounter ID Performer Location Encounter Start Date Encounter Closed Date Diagnosis/Indication Diagnosis SNOMED-CT Code Diagnosis ICD10 Code Diagnosis IMO Codes Diagnosis Note [id number] [facility], [facility] CS [phone] [place] [address] 05/27/2025 20:53:21 05/30/2025 15:20:08 Obstructive sleep apnea of adult 8142654853 103 G47.33 [id number] Health Concerns Section Related Observation LastModified by Organization Detai ls LastModified Time None Recorded Concern Status LastModified by Organization Details LastModified Time None Recorded Advance Directives Directive None Recorded Payers Insurance Date Sequence Insurance Name Policy Number Policy Moore Covered Member ID Moore Member ID Guarantor Name 05/27/2025 1 *SELF PAY* Antione Holloway [id number] 06/09/2025 [employer] [place] [employer]) Case Holloway [id number] Case Holloway [id number]
[2025-07-14 01:05] LABS: Add Urine Microscopic? NO; Appearance Urine Clear (Clear); Glucose Urine UA Negative (Negative); Leukocyte Esterase Ur Negative LEU/UL (Negative); Nitrate Urine Negative (Negative); Specific Grav Ur 1.014 (1.001-1.035)
[2025-07-14 01:07] LABS: Hematocrit 44.6 % (42.0-52.0); Hemoglobin 15.7 g/dL (14.0-18.0); Immature Granulocyte Percent A 0.4 % (0-0.5); Immature Platelet Fraction Pct 8.7 % (0.9-11.2); Lymphocytes Absolute Auto 1.21 K/mm3 (0.9-3.2); Mean Corpuscular HGB Conc 35.2 g/dl (32-36); Mean Corpuscular Hemoglobin 32.6 pg (26-34); Mean Corpuscular Volume 92.5 fl (80-100); Nucleated Red Blood Cells Absolute Auto 0.000 K/mm3 (0.0-0.012); Nucleated Red Blood Cells Perc 0.0 % (0.0-0.2); Platelet Count Result 124 k/mm3 (150-375); Red Blood Count 4.82 M/mm3 (4.6-6.20); White Blood Count 5.5 K/mm3 (4.5-10.0)
[2025-07-14 01:20] LABS: Alanine Aminotransferase 45 U/L (6-50); Albumin Level 4.8 g/dL (3.5-5.1); Alkaline Phosphatase 84 U/L (38-126); Anion Gap 11 mmol/L (4-12); Aspartate Amino Transferase 50 U/L (17-59); Bilirubin,Total 1.8 mg/dL (0.2-1.3); Blood Urea Nitrogen 21 mg/dL (9-20); Calcium 9.4 mg/dL (8.4-10.2); Carbon Dioxide 19 mmol/L (22-30); Chloride 105 mmol/L (98-107); Estimated CRCL calculation 97 ml/min; Estimated Glomerular Filt Rate > 60; Glucose 88 mg/dL (65-110); Lipase 103 U/L (23-300); Potassium 4.3 mmol/L (3.4-5.0); Sodium 135 mmol/L (137-145); Total Protein 8.8 g/dL (6.3-8.2)
[2025-07-14 01:22] LABS: Cannabinoid Screen Urine Negative (Negative); INR 1.1; Prothrombin Time 14.0 Seconds (11.1-14.7)
[2025-07-14 01:23] LABS: Partial Thromboplastin Time 30.4 Seconds (22.3-36.8)
[2025-07-14 01:32] LABS: NT Pro B Type Natriuretic Pept < 20 pg/mL (19.9-100); Troponin I < 0.012 ng/mL (0.000-0.034)
[2025-07-14 01:56] LABS: Thyroid Stimulating Hormone Reflex 3.780 uIU/mL (0.465-4.68)
[2025-07-14] MEDS: ALPRAZolam (*CRX) 0.5 MG TABLET PO (02:58)
== END 2025-07-14 03:20 | disposition home or self-care (01) ==
PROVIDERS: Emergency Provider Registered Nurse
DX: R07.89 Other chest pain (principal); F41.9 Anxiety disorder, unspecified; R06.02 Shortness of breath; I50.9 Heart failure, unspecified; E78.5 Hyperlipidemia, unspecified; F10.20 Alcohol dependence, uncomplicated
CPT/HCPCS: 36415; 71046; 80053; 80307; 81003; 83690; 83880; 84443; 84484; 85025; 85055; 85380; 85610; 85730; 93005; 99284; A9270